=== PATIENT | female | born 1985 | race Caucasian/White ===

== ENCOUNTER 2020-11-24 19:06 | Emergency (ER) | payer OTHER, SELFPAY ==
--- NOTE | 2020-11-24 19:12 | ED.HEATRA ---
HPI - Head Injury General Chief complaint: Head Injury Stated complaint: thinks she got a concussion, neck pain Time Seen by Provider: 11/24/20 19:12 Source: patient and family Mode of arrival: Ambulatory Limitations: no limitations History of Present Illness HPI Narrative: 35-year-old female nonsmoker with noncontributory medical history presents with her significant other and a chief complaint of a head injury with neck pain suffered earlier today. She was doing pull-ups on a monkey bar when she thrust her head into the bar and suffered injury on the top of her head. She did not lose consciousness and has no laceration. She does not take blood thinners and denies use of alcohol or street drugs. She is acting appropriate and at her baseline, without confusion or repetitive questioning. She did have 4 episodes of vomiting between her injury and arrival at the emergency department. Additionally, she complains of some midline neck pain that seems to be worse with motion and improves with rest. She denies any neurologic symptoms such as numbness, tingling or weakness. She denies any history of the same. She is otherwise well and free of complaint. MD Complaint: head injury Onset (ago): hour(s) Arrival Conditions: C-spine immobilization present Mechanism of Injury: other Place: outdoors Loss of Consciousness: no Location of injury: parietal Severity: moderate Quality: aching Radiation: neck Other Injuries: neck Associated symptoms: nausea and vomiting Related Data Previous Rx's Medication Instructions Recorded ondansetron 4 mg PO TID-QID PRN #10 tab 11/24/20 Allergies Allergy/AdvReac Type Severity Reaction Status Date / Time No Known Drug Allergies Allergy Verified 11/24/20 19:18 Review of Systems Constitutional Constitutional: Denies chills, Denies fatigue, Denies fever(s), Denies frequent falls, Denies lethargy and Denies weakness Eyes Eyes: Denies change in vision, Denies eye discharge, Denies irritation and Denies loss of vision ENT Ears, Nose, Mouth, and Throat: Denies change in voice, Denies dizziness, Reports neck pain, Denies sore throat and Denies throat swelling Cardiovascular Cardiovascular: Denies chest pain, Denies irregular heart rhythm, Denies lightheadedness, Denies palpitations, Denies dyspnea, Denies dyspnea on exertion and Denies orthopnea Respiratory Respiratory: Denies cough, Denies dyspnea, Denies dyspnea on exertion and Denies wheezing Gastrointestinal Gastrointestinal: Denies abdominal pain, Denies change in bowel habits, Denies diarrhea, Reports nausea and Reports vomiting Musculoskeletal Musculoskeletal: Reports neck pain and Denies numbness Integumentary/Breasts Skin/Breast: Denies pruritus, Denies erythema, Denies rash and Denies wounds Neurologic Neurologic: Denies behavioral changes, Denies confusion, Denies dizziness, Denies frequent falls, Denies loss of vision, Denies numbness and Denies weakness Psychiatric Psychiatric: Denies anxiety, Denies behavioral changes, Denies confusion, Denies depression, Denies homicidal ideation and Denies suicidal ideation Endocrine Endocrine: Denies fatigue, Denies flushing and Denies palpitations Hematologic/Lymphatic Hematologic/Lymphatic: Denies easy bruising Allergic/Immunologic Allergic/Immunologic: Denies urticaria, Denies throat swelling and Denies wheezing Patient History Social History Smoking Status: Never smoker Smoking Status: Never smoker alcohol intake frequency: 0-2 drinks per day Substance Use Type: does not use Exam Narrative Exam Narrative: GENERAL: [35] year old patient appears stated age. Well-nourished, well-developed patient, in mild distress. GCS 15 HEAD: Atraumatic. Normocephalic. Mildly tender on top of had a few cm beyond the hairline, no laceration or large hematoma, no evidence of depressed skull fracture EYES: Pupils equal round and reactive. No hyphema Extraocular motions intact. No scleral icterus. No injection or drainage. ENT: Nose without bleeding, purulent drainage. No nasal septal hematoma Throat without erythema, tonsillar hypertrophy or exudate. Airway patent. NECK: Trachea midline. Bony tenderness in the midline, no step-offs or crepitance, no change with axial loading and no numbness, tingling or weakness CARDIOVASCULAR: Regular rate and rhythm without murmurs, gallops, or rubs. RESPIRATORY: Clear to auscultation. Breath sounds equal bilaterally. No wheezes, rales, or rhonchi. GASTROINTESTINAL: Abdomen soft, non-tender, nondistended. EXTREMITIES: No edema or joint tenderness. BACK: Nontender without deformity or crepitance. No flank tenderness. NEURO: AOx3. SKIN: No rash or erythema of visible areas Initial Vital Signs Initial Vital Signs: Vital Signs Temperature 98.1 F 11/24/20 19:18 Pulse Rate 84 11/24/20 19:18 Respiratory Rate 18 11/24/20 19:18 Blood Pressure 151/88 H 11/24/20 19:18 Pulse Oximetry 100 11/24/20 19:18 Course Orders Ordered: Discontinued Medications Cyclobenzaprine HCl (Cyclobenzaprine 10 Mg Prepack) 1 bottle MISC SEEINSTR ONE Stop: 11/24/20 20:56 Last Admin: 11/24/20 21:03 Dose: 1 bottle Documented by: LINDSAY Ondansetron HCl (Ondansetron 4 Mg Odt Prepack) 1 bottle MISC SEEINSTR ONE Stop: 11/24/20 20:42 Last Admin: 11/24/20 20:47 Dose: 1 bottle Documented by: KINGSLEY MDM - Head Injury Imaging Data CT scan - head: Radiologist's Impression: Renee Camp 35 F [address] [id number] Scan ReportSigned Patient: Renee Camp AMR#: [id number]: 1985Acct:[id number]/Sex: 35 / FDate of Service: 11/24/20Loc: EDAccession Number: [id number] Procedure: CT head/brain wo con Ordering Provider: Tony Erickson D.O. PROCEDURE: CT HEAD/BRAIN WO CON INDICATIONS: head injury, multiple episodes of vomiting TECHNIQUE: Noncontrast 4.5 mm thick angled axial sections acquired from the foramen magnum to the vertex, with coronal and sagittal reformats. For radiation dose reduction, the following was used: automated exposure control, adjustment of mA and/or kV according to patient size. COMPARISON: None. FINDINGS: Image quality: Excellent. CSF spaces: Basal cisterns are patent. No extra-axial fluid collections. Ventricles are normal in size and shape. Brain: No midline shift. No intracranial masses or hemorrhage. Ewing-white matter interface is normal. Skull and face: Calvarium and visualized facial bones are intact, without suspicious lesions. Sinuses: Visualized sinuses and mastoids are clear. IMPRESSION: No CT evidence of acute intracranial pathology. No gross acute skull fracture. Dictated by: Kalen Le M.D. on 11/24/2020 at 20:01 Approved by: Kalen Le M.D. on 11/24/2020 at 20:02 CT - cervical spine: Radiologist's Impression: Renee Camp 35 F [address] [id number] Scan ReportSigned Patient: Renee Camp AMR#: [id number]: 1985Acct:[id number]/Sex: 35 / FDate of Service: 11/24/20Loc: EDAccession Number: [id number] Procedure: CT cervical spine wo con Ordering Provider: Tony Erickson D.O. PROCEDURE: CT CERVICAL SPINE WO CON INDICATIONS: neck pain, with injury TECHNIQUE: Noncontrast 3 mm thick sections acquired from the skull base to the T4 level. Sagittal and coronal reformats were then constructed. For radiation dose reduction, the following was used: automated exposure control, adjustment of mA and/or kV according to patient size. COMPARISON: None. FINDINGS: Image quality: Excellent. Bones: No fractures or dislocations. Straightening of normal cervical lordosis is seen. Mild degenerative endplate changes are noted at C6-7 level. Visualized superior ribs are intact. Soft tissues: Prevertebral soft tissues are normal in thickness. No paravertebral hematomas. No apical pneumothoraces. IMPRESSION: Mild degenerative endplate changes at C6-7 level. No acute cervical spine fracture or dislocation. Dictated by: Kalen Le M.D. on 11/24/2020 at 20:02 Approved by: Kalen Le M.D. on 11/24/2020 at 20:05 [facility] Narrative Medical decision making narrative: Patient with multiple episodes of vomiting after head injury but normal head CT. She has a very reassuring exam and answers questions appropriately. She does have some midline neck tenderness but has full range of motion and no neurologic symptoms. She has been given return precautions and encouraged to follow-up. Questions answered to her apparent satisfaction Discharge Plan Departure Patient Disposition: Home Clinical Impression: Acute neck pain Concussion without loss of consciousness Qualifiers: Encounter type: initial encounter Qualified Code(s): S06.0X0A - Concussion without loss of consciousness, initial encounter Instructions: DI for Closed Head Injury Activity Restrictions/Additional Instructions: *You have been diagnosed with [head injury with mild concussion. Your CT scan of head and neck are very reassuring and there is no evidence of fracture, dislocation or brain injury.] *What to do: *Please continue to take your regular medications as directed. [ ] New medication prescriptions sent to your pharmacy: [ ] [ ] New medication written as a paper prescription [ ] New medications given to you to take home tonight. *Please follow up with your primary care provider in 2-3 days, call for an appointment. Let them know you were seen in the Emergency Department and that we ask that you be seen in follow up. We will electronically transmit a record of today's note if your PCP is in our system *If you do not have a primary care provider please contact the [facility] Resource line at [phone]. They will ask some questions about your medical history and help get you set up with a doctor in the community. You have a slight concussion and will likely have a mild headache and some nausea for a few days. Avoiding highly stimulating activities and even TV or computers may be helpful in minimizing your symptoms. Avoid activities that will put you at risk for another head injury for at least a week. You can take tylenol or motrin for headache or the prescription provided for nausea/vomiting. Return for worsening or persistent symptoms *Return to Emergency Department if you should have any new, worsening or concerning symptoms, such as [fever greater than 101 F, shaking chills, worsening pain, persistent vomiting or other bothersome symptoms] Prescriptions: New ondansetron 4 mg tablet,disintegrating 4 mg PO TID-QID PRN (Reason: nausea and vomiting) Qty: 10 RF: 0
[2020-11-24 19:18] VITALS: BP 151/88; PULSE 84; RESP 18; TEMP 36.7; O2SAT 100; BMI 31.6
--- NOTE | 2020-11-24 19:29 | DI.CT.S_ITS ---
PROCEDURE: CT CERVICAL SPINE WO CON INDICATIONS: neck pain, with injury TECHNIQUE: Noncontrast 3 mm thick sections acquired from the skull base to the T4 level. Sagittal and coronal reformats were then constructed. For radiation dose reduction, the following was used: automated exposure control, adjustment of mA and/or kV according to patient size. COMPARISON: None. FINDINGS: Image quality: Excellent. Bones: No fractures or dislocations. Straightening of normal cervical lordosis is seen. Mild degenerative endplate changes are noted at C6-7 level. Visualized superior ribs are intact. Soft tissues: Prevertebral soft tissues are normal in thickness. No paravertebral hematomas. No apical pneumothoraces. IMPRESSION: Mild degenerative endplate changes at C6-7 level. No acute cervical spine fracture or dislocation. Dictated by: Kalen Le M.D. on 11/24/2020 at 20:02 Approved by: Kalen Le M.D. on 11/24/2020 at 20:05
--- NOTE | 2020-11-24 19:29 | DI.CT.S_ITS ---
PROCEDURE: CT HEAD/BRAIN WO CON INDICATIONS: head injury, multiple episodes of vomiting TECHNIQUE: Noncontrast 4.5 mm thick angled axial sections acquired from the foramen magnum to the vertex, with coronal and sagittal reformats. For radiation dose reduction, the following was used: automated exposure control, adjustment of mA and/or kV according to patient size. COMPARISON: None. FINDINGS: Image quality: Excellent. CSF spaces: Basal cisterns are patent. No extra-axial fluid collections. Ventricles are normal in size and shape. Brain: No midline shift. No intracranial masses or hemorrhage. Ewing-white matter interface is normal. Skull and face: Calvarium and visualized facial bones are intact, without suspicious lesions. Sinuses: Visualized sinuses and mastoids are clear. IMPRESSION: No CT evidence of acute intracranial pathology. No gross acute skull fracture. Dictated by: Kalen Le M.D. on 11/24/2020 at 20:01 Approved by: Kalen Le M.D. on 11/24/2020 at 20:02
[2020-11-24] MEDS: ONDANSETRON 4 MG ODT PREPACK 1 BOTTLE MISC (20:47)
[2020-11-24] MEDS: CYCLOBENZAPRINE 10 MG PREPACK 1 BOTTLE MISC (21:03)
[2020-11-24 21:08] VITALS: BP 135/68; PULSE 73; RESP 16; O2SAT 99
== END 2020-11-24 21:10 | disposition home or self-care (01) ==
PROVIDERS: Emergency Provider Emergency Medicine
DX: S06.0X0A Concussion without loss of consciousness, initial encounter (principal); M54.2 Cervicalgia; W21.9XXA Striking against or struck by unspecified sports equipment, initial encounter
CPT/HCPCS: 70450; 72125; 99284

== ENCOUNTER 2021-01-22 15:24 | Emergency (ER) | payer OTHER, SELFPAY ==
[2021-01-22] VITALS (14 sets, daily range): BP systolic 117–151; BP diastolic 58–84; PULSE 56–86; RESP 11–33; TEMP 36.6; O2SAT 98–100; BMI 31.6
--- NOTE | 2021-01-22 15:49 | DI.RAD.S_ITS ---
PROCEDURE: XR CHEST 1V INDICATIONS: Chest pain TECHNIQUE: One view of the chest was acquired. COMPARISON: None. FINDINGS: Surgical changes and devices: None. Lungs and pleura: Lungs are clear. No pleural effusions or pneumothorax. Mediastinum: Mediastinal contours appear normal. Heart size is normal. Bones and chest wall: No suspicious bony lesions. Overlying soft tissues appear unremarkable. IMPRESSION: No acute cardiopulmonary process demonstrated radiographically. Dictated by: Harjeet Polk M.D. on 01/22/2021 at 16:37 Approved by: Harjeet Polk M.D. on 01/22/2021 at 16:38
[2021-01-22 16:25] LABS: Add Manual Diff / Slide Review NO; Basophils Absolute Auto 0 /uL (0-100); Basophils Percent Auto 0.7 % (0-2); Eosinophils Absolute Auto 100 /uL (0-450); Eosinophils Percent Auto 1.5 % (2-4); Hematocrit 35.5 % (36-46); Lymphocytes Absolute Auto 2300 /uL (1100-4500); Lymphocytes Percent Auto 31.3 % (25-40); Mean Corpuscular HGB Conc 33.9 % (30-36); Mean Corpuscular Hemoglobin 27.6 PG (26-34); Mean Corpuscular Volume 81.4 fL (80-100); Monocytes Absolute Auto 500 /uL (0-900); Monocytes Percent Auto 6.5 % (3-14); Neutrophils Absolute Auto 4500 /uL (1500-7000); Platelet Count 269 X10^3/uL (150-400); Red Blood Cell Count 4.35 X10^6/uL (4.0-5.2); Red Cell Distribution Width 16.4 % (11.6-14.8); White Blood Cell Count 7.4 X10^3/uL (4.5-11.0)
[2021-01-22 16:35] LABS: Alanine Aminotransferase 13 IU/L (<35); Albumin 4.1 g/dL (3.5-5.0); Albumin Globulin Ratio 1.4 (1.0-2.8); Alkaline Phosphatase 66 U/L (38-126); Aspartate Aminotransferase 12 IU/L (14-36); Bilirubin Total 0.7 mg/dL (0.2-1.3); Blood Urea Nitrogen 11 mg/dL (7-17); Calcium 9.3 mg/dL (8.4-10.2); Carbon Dioxide 28 mmol/L (22-32); Chloride 105 mmol/L (98-107); Creatine Kinase 58 U/L (30-135); Estimated Glomerular Filt Rate > 60.0 mL/min (>60); Glucose 85 mg/dL (70-100); HEMOLYSIS < 15 (0-50); Lipase 69 U/L (23-300); Sodium 139 mmol/L (137-145); Total Protein 7.1 g/dL (6.3-8.2)
[2021-01-22 16:47] LABS: Troponin I < 0.012 ng/mL (0.01-0.034)
--- NOTE | 2021-01-22 18:37 | ED.DIZZY ---
HPI - Dizziness General Chief Complaint: Dizziness Stated Complaint: visual changes, dizziness Time Seen by Provider: 01/22/21 18:01 Source: patient Mode of arrival: Family Vehicle History of Present Illness HPI Narrative: 35-year-old female nonsmoker with noncontributory medical history presents with a chief complaint of an episode of sharp pain in her calf that was very brief and closely followed by rapid irregular heart rate. She states that there rapid heart rate lasted few moments and soon thereafter she developed a headache as well as some blurring her vision. The headache persists but the blurring of vision is largely improved. She denies recent travel, injuries, fever or chills. She denies any recent nausea, vomiting, diarrhea. She denies any new medications or [id number] meds. Related Data Previous Rx's Medication Instructions Recorded ondansetron 4 mg disintegrating 4 mg PO TID-QID PRN #10 tab 11/24/20 tablet Allergies Allergy/AdvReac Type Severity Reaction Status Date / Time No Known Drug Allergies Allergy Verified 01/22/21 15:49 Review of Systems Constitutional Constitutional: Denies chills, Denies fatigue, Denies fever(s), Denies lethargy and Denies weakness Eyes Eyes: Denies eye discharge and Denies loss of vision ENT Ears, Nose, Mouth, and Throat: Denies change in voice and Denies neck pain Cardiovascular Cardiovascular: Denies chest pain, Reports irregular heart rhythm, Reports lightheadedness, Reports palpitations and Denies orthopnea Respiratory Respiratory: Denies cough Gastrointestinal Gastrointestinal: Denies abdominal pain, Denies nausea and Denies vomiting Genitourinary Comments: Denies dysuria, frequency or urgency Musculoskeletal Musculoskeletal: Denies neck pain and Denies numbness Integumentary/Breasts Skin/Breast: Denies rash and Denies wounds Neurologic Neurologic: Denies behavioral changes, Denies confusion, Denies loss of vision, Denies numbness and Denies weakness Psychiatric Psychiatric: Denies anxiety, Denies behavioral changes, Denies confusion and Denies depression Endocrine Endocrine: Denies fatigue and Reports palpitations Hematologic/Lymphatic Hematologic/Lymphatic: Denies easy bruising Allergic/Immunologic Allergic/Immunologic: Denies urticaria Patient History Social History Smoking Status: Never smoker Smoking Status: Never smoker alcohol intake frequency: 0-2 drinks per day Substance Use Type: does not use Exam Narrative Exam Narrative: GENERAL: [35] year old patient appears stated age. Well-developed patient, in mild distress. HEAD: Atraumatic. Normocephalic. EYES: Pupils equal round and reactive. Extraocular motions intact. No scleral icterus. No injection or drainage. ENT: Nose without bleeding, purulent drainage. Throat without erythema, tonsillar hypertrophy or exudate. Airway patent. NECK: Trachea midline. Non tender CARDIOVASCULAR: Regular rate and rhythm without murmurs, gallops, or rubs. RESPIRATORY: Clear to auscultation. Breath sounds equal bilaterally. No wheezes, rales, or rhonchi. GASTROINTESTINAL: Abdomen soft, non-tender, nondistended. EXTREMITIES: No edema or joint tenderness. No calf pain, swelling or redness BACK: Nontender without deformity or crepitance. No flank tenderness. NEURO: AOx3. SKIN: No rash or erythema of visible areas NIH Stroke Scale 1a. LOC: Patient is alert and keenly responsive (0) 1b. LOC Questions: Patient answers both LOC questions accurately (0) 1c. LOC Commands: Patient performs both tasks correctly (0) 2. Best Gaze: Normal (0) 3. Visual: No visual loss (0) 4. Facial palsy: Normal symmetrical movements (0) 5. Motor arm: No drift (0) 6. Motor leg: No drift (0) 7. Limb ataxia: Absent (0) 8. Sensory: Normal (0) 9. Best language: No aphasia; normal (0) 10. Dysarthria: Normal (0) 11. Extinction and inattention: No abnormality (0) NIHSS: 0 Initial Vital Signs Initial Vital Signs: Vital Signs Temperature 97.9 F 01/22/21 15:45 Pulse Rate 75 01/22/21 15:45 Respiratory Rate 19 01/22/21 15:45 Blood Pressure 143/84 H 01/22/21 15:45 Pulse Oximetry 99 01/22/21 15:45 Scores PERC Score Age greater than or equal to 50 years: No Heart rate greater than or equal to 100 bpm: No Unilateral leg swelling: No Recent trauma or surgery: No Hemoptysis: No Prior PE or DVT: No Hormone Use: No Wells' Criteria for PE Clinical signs and symptoms of DVT: No PE is #1 Dx or equally likely: No Heart rate > 100: No History of PE or DVT: No Hemoptysis: No Malignancy w/Treatment within 6 months or palliative: No Course Orders Ordered: Discontinued Medications Sodium Chloride (Normal Saline 0.9%) 1,000 mls @ 1,000 mls/hr IV BOLUS ONE Stop: 01/22/21 19:44 Last Infusion: 01/22/21 20:30 Dose: 0 mls/hr Documented by: Admin: 01/22/21 19:13 Dose: 1,000 mls/hr Documented by: SARAH Ketorolac Tromethamine (Ketorolac 30 Mg/Ml Vial) 15 mg IV NOW ONE Stop: 01/22/21 18:46 Last Admin: 01/22/21 19:12 Dose: 15 mg Documented by: SARAH Reevaluation(s) Reevaluation #1: Patient feeling much better after above-stated therapies Vital Signs Vital signs: Vital Signs - 8 hr 01/22/21 19:30 01/22/21 19:31 01/22/21 20:00 Pulse Rate 65 63 59 L Pulse Rate [Orthostatic Lying] Pulse Rate [Orthostatic Sitting] Pulse Rate [Orthostatic Standing] Respiratory Rate 25 H 18 16 Blood Pressure 129/60 Blood Pressure [Orthostatic Lying] Blood Pressure [Orthostatic Sitting] Blood Pressure [Orthostatic Standing] Pulse Oximetry 100 100 100 01/22/21 20:04 01/22/21 20:30 01/22/21 21:00 Pulse Rate 66 62 56 L Pulse Rate [Orthostatic Lying] Pulse Rate [Orthostatic Sitting] Pulse Rate [Orthostatic Standing] Respiratory Rate 15 11 L 16 Blood Pressure 123/67 140/66 Blood Pressure [Orthostatic Lying] Blood Pressure [Orthostatic Sitting] Blood Pressure [Orthostatic Standing] Pulse Oximetry 100 100 100 01/22/21 21:01 01/22/21 21:27 01/22/21 21:29 Pulse Rate 64 68 70 Pulse Rate [Orthostatic Lying] Pulse Rate [Orthostatic Sitting] Pulse Rate [Orthostatic Standing] Respiratory Rate 18 24 14 Blood Pressure 117/58 L 137/63 133/73 Blood Pressure [Orthostatic Lying] Blood Pressure [Orthostatic Sitting] Blood Pressure [Orthostatic Standing] Pulse Oximetry 100 99 100 01/22/21 21:30 01/22/21 21:31 01/22/21 22:00 Pulse Rate 86 71 Pulse Rate [Orthostatic Lying] 73 Pulse Rate [Orthostatic Sitting] 70 Pulse Rate [Orthostatic Standing] 82 Respiratory Rate 33 H 21 Blood Pressure 151/79 H 127/62 Blood Pressure [Orthostatic Lying] 137/63 Blood Pressure [Orthostatic Sitting] 133/73 Blood Pressure [Orthostatic Standing] 151/79 H Pulse Oximetry 100 98 MDM - Dizziness Lab Data Result diagrams: 01/22/21 16:10 01/22/21 16:10 Labs: Lab Results 01/22/21 01/22/21 Range/Units 16:10 16:10 WBC 7.4 (4.5-11.0) X10^3/uL RBC 4.35 (4.0-5.2) X10^6/uL Hgb 12.0 (12.0-16.0) g/dL Hct 35.5 L (36-46) % MCV 81.4 (80-100) fL MCH 27.6 (26-34) PG MCHC 33.9 (30-36) % RDW 16.4 H (11.6-14.8) % Plt Count 269 (150-400) X10^3/uL Neut % (Auto) 60.0 (50-75) % Lymph % (Auto) 31.3 (25-40) % [place] % (Auto) 6.5 (3-14) % Eos % (Auto) 1.5 L (2-4) % Baso % (Auto) 0.7 (0-2) % Neut # (Auto) 4500 (8411-1895) /uL Lymph # (Auto) 2300 (3452-7021) /uL [place] # (Auto) 500 (0-900) /uL Eos # (Auto) 100 (0-450) /uL Baso # (Auto) 0 (0-100) /uL Sodium 139 (137-145) mmol/L Potassium 4.0 (3.4-5.1) mmol/L Chloride 105 (98-107) mmol/L Carbon Dioxide 28 (22-32) mmol/L BUN 11 (7-17) mg/dL Creatinine 0.61 (0.52-1.04) mg/dL Estimated GFR > 60.0 (>60) mL/min BUN/Creatinine Ratio 18.0 (6-22) Glucose 85 (70-100) mg/dL Calcium 9.3 (8.4-10.2) mg/dL Total Bilirubin 0.7 (0.2-1.3) mg/dL AST 12 L (14-36) IU/L ALT 13 (<35) IU/L Alkaline Phosphatase 66 (38-126) U/L Total Creatine Kinase 58 (30-135) U/L CK-MB (CK-2) TNP CK-MB (CK-2) Rel Index TNP Troponin I < 0.012 (0.01-0.034) ng/mL Total Protein 7.1 (6.3-8.2) g/dL Albumin 4.1 (3.5-5.0) g/dL Globulin 3.0 (1.7-4.1) g/dL Albumin/Globulin Ratio 1.4 (1.0-2.8) Lipase 69 (23-300) U/L MDM Narrative Medical decision making narrative: Patient reports some dizziness and lightheadedness as well as mild headache, dizziness and lightheadedness is worse upon standing in all but resolved upon sitting. Her visual complaints seem to be very closely linked in exacerbated by a rapid heart rate that resolved long before her arrival. EKG show no significant findings and lab work is unremarkable. She responds well to fluids. She has been given return precautions and is had questions answered to her apparent satisfaction. It seems likely that there is an element of dehydration here but other diagnoses such as pulmonary embolism are considered, but thought unlikely given extremely low pretest probability Discharge Plan Departure Patient Disposition: Home Clinical Impression: Headache, Acute dehydration, Palpitations Instructions: DI for Headache, DI for Dizziness-Nonvertigo Activity Restrictions/Additional Instructions: *You have been diagnosed with [palpitations, dehydration and headache] *What to do: *Please continue to take your regular medications as directed. [ ] New medication prescriptions sent to your pharmacy: [ ] [ ] New medication written as a paper prescription [ x] No new medications given *Please follow up with your primary care provider in 2-3 days, call for an appointment. Let them know you were seen in the Emergency Department and that we ask that you be seen in follow up. We will electronically transmit a record of today's note if your PCP is in our system *If you do not have a primary care provider please contact the [facility] Resource line at [phone]. They will ask some questions about your medical history and help get you set up with a doctor in the community. *Return to Emergency Department if you should have any new, worsening or concerning symptoms, such as [fever greater than 101 F, shaking chills, worsening pain, persistent vomiting or other bothersome symptoms] Prescriptions: No Action ondansetron 4 mg tablet,disintegrating 4 mg PO TID-QID PRN (Reason: nausea and vomiting) Qty: 10 RF: 0
[2021-01-22] MEDS: KETOROLAC 30 MG/ML VIAL 15 MG IV (19:12)
[2021-01-22] MEDS: SODIUM CHLORIDE 0.9% 1,000 ML 1000 ML IV (19:13)
== END 2021-01-22 22:05 | disposition home or self-care (01) ==
PROVIDERS: Emergency Medicine; Emergency Provider Emergency Medicine
DX: R00.2 Palpitations (principal); R51.9 Headache, unspecified; E86.0 Dehydration; H53.8 Other visual disturbances
CPT/HCPCS: 36415; 71045; 80053; 82550; 83690; 84484; 85025; 93005; 96361; 96374; 99284; J1885

== ENCOUNTER 2022-04-04 11:45 | Day surgery (SDC) | payer OTHER, SELFPAY ==
--- NOTE | 2022-04-04 | PATH_ITS ---
[facility] Accession Number: [id number] . 01 Material submitted: . PART A: duodenum - DUODENUM BIOPSY PART B: gastrointestinal site - ANTRUM BIOPSY . 01 Diagnosis: A. Duodenum, Biopsy: Duodenal mucosa with no diagnostic abnormality. Negative for active inflammation, features of sprue, dysplasia, or malignancy. . B. Antrum, Biopsy: Antral mucosa with no diagnostic abnormality. No evidence of Helicobacter organisms on H/E stain. Negative for intestinal metaplasia. Negative for dysplasia or malignancy. [facility] 04/07/2022 0944 Local . 01 Electronically signed: . Lorna Cota MD, Pathologist NPI- [id number] . 01 Gross description: . Part A: DUODENUM BIOPSY: Received in formalin are 4 fragment(s) of tracy, soft tissue measuring 0.4 x 0.3 x 0.3 cm to 0.2 x 0.2 x 0.1 cm submitted entirely in 1 cassette(s) Part B: ANTRUM BIOPSY: Received in formalin are 2 fragment(s) of tracy, soft tissue measuring 0.3 x 0.2 x 0.1 cm to 0.3 x 0.2 x 0.2 cm submitted entirely in 1 cassette(s) /QBJ 04/06/2022 1025 Local . 01 Pathologist provided ICD-10: K59.00, R11.2 . 01 CPT . 348243, [id number] Specimen Comment: A courtesy copy of this report has been sent to [phone] Performed at: 01 [facility] [address] [place] [address] [address], [place], [place] [id number] MD Saud Ryan MD Phone: [phone]
[2022-04-04 12:15] VITALS: BP 123/72; PULSE 66; RESP 16; TEMP 36.7; O2SAT 100; BMI 28.1
[2022-04-04] MEDS: SODIUM CHLORIDE 0.9% 1,000 ML 84 ML IV (12:27)
[2022-04-04 12:58] LABS: COVID19 -Nasal RAPID Negative (Negative)
--- NOTE | 2022-04-04 13:07 | PM.HP.1 ---
History of Present Illness History of Present Illness Date Patient Seen: 04/04/22 Time Patient Seen: 13:07 Chief complaint: EGD/Colonoscopy Narrative: I reviewed my office note from December. No significant changes. No significant improvements. Couple of bowel movements per week. Frequent nausea vomiting. Frequent upper abdominal pain. Low-grade microcytosis Patient History Family & Social History Social History: household members spouse Tobacco & Substance use: Smoking Status Never smoker alcohol intake never alcohol intake frequency 0-2 drinks per day Substance Use Type does not use Meds Home Medications and Allergies Home Medications Medication Instructions Recorded Confirmed Type ondansetron 4 mg disintegrating 4 mg PO TID-QID PRN nausea and 11/24/20 04/04/22 Rx tablet vomiting #10 tabs Topamax See Rx Instructions .Route .COMPLEX 04/04/22 04/04/22 History Allergies Allergy/AdvReac Type Severity Reaction Status Date / Time morphine Allergy Rash Verified 04/04/22 12:09 Review of Systems Review of Systems ROS: Yes All systems reviewed with the patient and are negative except as otherwise documented Exam Vital Signs (past 8 hours): - 04/04/22 12:15 Temperature 98.0 F Pulse Rate 66 Respiratory Rate 16 Blood Pressure 123/72 Pulse Oximetry 100 Oxygen Delivery Method Room Air Oxygen Delivery Method Room Air Const General: cooperative HENMT Head: normal to inspection Eyes General: appearance normal, both eyes and all related structures Neck Neck: normal visual inspection Chest Chest: normal inspection of the chest Resp Effort & Inspection: normal respiratory effort Cardio Rate: regular rate GI Inspection: normal to inspection Skin General: no rashes or lesions noted Neuro General: patient alert and patient awake Extrem General: normal to inspection and no pedal edema Psych Appearance: grossly normal Objective Labs Labs: Laboratory Results - last 24 hr 04/04/22 11:53 SARS-CoV-2 (PCR) Negative Assessment & Plan Assessment & Plan narrative: 37-year-old female with intermittent right upper quadrant pain nausea vomiting constipation and a concern for iron deficiency. Both EGD and colonoscopy are pursued today. Time Spent With Patient Critical Care time: I spent a total of [] minutes of critical care time on this patient's care today; this time is exclusive of procedural time.
--- NOTE | 2022-04-04 13:09 | PM.PREOP ---
Pre-operative Note COVID-19 COVID-19 status: Negative Result date/Date tested (Pos, Neg/Pending): 04/04/22 Criteria for continued procedure: Possibility delay results in more complex future surgery or treatment Interval Note History & Physical reviewed/Exam performed by Physician: Yes Changes to H&P: No ASA Class (for procedural sedation): II
--- NOTE | 2022-04-04 14:21 | P.OP.EGD&C_ITS ---
Operative Date/Time/Diagnoses Date of procedure: 04/04/22 Time of procedure: 14:21 Pre-op diagnosis: Nausea vomiting abdominal pain constipation microcytosis Post-op diagnosis: same Procedure & Clinicians Study performed: EGD with biopsies and colonoscopy Same procedure as scheduled: Yes Indications: Nausea vomiting abdominal pain constipation microcytosis Surgeon: Rocael Louis Procedure Notes SCOAP/Timeout: Done Procedure in detail: After the risks and benefits were explained, written and verbal informed consent was obtained. The patient was brought into the procedure room and placed into the left lateral decubitus position. Digital rectal exam was accomplished prior to initiation of sedation. Please see nurse cell phone repair technician notes for sedation details. The scope was introduced into the mouth through the bite block and advanced under direct visualization to the 2nd portion of the duodenum. The scope was slowly withdrawn carefully examining the mucosa for any defects or lesions. Retroflexed views were accomplished in the stomach. The stomach was decompressed, the scope was then removed from the patient who tolerated the procedure well. The patient was then turned around scope introduced into the rectum and advanced to the cecum as identified by the appendiceal orifice and ileocecal valve. The terminal ileum was interrogated. The scope was then slowly withdrawn to carefully examine the mucosa for any defects or lesions. Multiple direct views were made through the dentate line for exclusion of pathology. The the colon was decompressed scope removed from the patient who tolerated the procedure well. Pediatric colonoscope Bowel prep fair but with copious irrigation and suction was rendered adequate. Scope withdrawal time: 9 minutes Sedation minutes: 34 Complications: none Impression: 1. Duodenum: This was visually normal from the bulb through the 2nd portion. Considering the microcytosis, random D2 biopsies were taken for exclusion of sprue. 2. Stomach: No gastric outlet obstruction no ulcers no mass lesions. Mild gastropathy was appreciated and antral biopsies were thus acquired for exclusion of H pylori or other pathology. Retroflexed views of the LES were unremarkable. 3. Esophagus: The squamocolumnar junction correlated with the top of the gastric folds. GEJ was at 40 cm from the incisors. No acute erosive changes no strictures no mass lesions. The esophagus appeared normal. 4. Terminal ileum: This was visually normal. 5. Colon: The patient had an extremely tortuous left colon. Navigation was somewhat challenging as a consequence. No significant polyps mass lesions strictures or inflammatory features identified throughout. 6. Rectal exam: Patient had a normal anal wink. Visually the external perineum was entirely normal. The patient had a normal resting anal sphincter tone. There was normal increased tension to the external anal sphincter mechanism with the request to contract. With simulated defecation, there was normal relaxation of the anal sphincter mechanism and the finger was easily expelled. Endoscopic diagnosis 1. Mild gastropathy 2. Otherwise visually unremarkable EGD 3. Normal anorectum 4. Tortuous left colon 5. Otherwise visually unremarkable colonoscopy and terminal ileoscopy. Post-procedure Plan for aftercare: 1. Await histopathology 2. Daily fiber regimen. 3. Daily to every other day MiraLax. 4. Follow up on response in GI clinic. Disposition: PACU
[2022-04-04 14:23] VITALS: BP 106/57; PULSE 69; RESP 12; TEMP 36.2; O2SAT 100
[2022-04-04 14:29] VITALS: BP 120/65; PULSE 72; RESP 15; O2SAT 100
[2022-04-04 14:34] VITALS: BP 109/63; PULSE 70; RESP 17; O2SAT 100
[2022-04-04 15:00] VITALS: BP 107/66; PULSE 71; RESP 16; O2SAT 100
--- NOTE | 2022-04-04 15:09 | SUR.PHASEII ---
pt A&Ox4, denies any distress and ready to discharge home. Discharge instructions reviewed and time allowed for questions. IV DC'd intact, pt left unit with all personal belongings via w/c with volunteer assist to ER entrance where family will transport pt home.
== END 2022-04-04 15:00 | disposition home or self-care (01) ==
PROVIDERS: PCP Nurse Practitioner; Referring Provider Internal Medicine Gastroenterology; Visit Provider Internal Medicine Gastroenterology
PROC: 0DJ08ZZ Inspection of Upper Intestinal Tract, Via Natural or Artificial Opening Endoscopic (ICD-10-PCS; CPT 43235; principal; 2022-04-04 12:30)
PROC: 0DJD8ZZ Inspection of Lower Intestinal Tract, Via Natural or Artificial Opening Endoscopic (ICD-10-PCS; CPT 45378; 2022-04-04 12:30)
DX: R10.9 Unspecified abdominal pain (principal); K59.00 Constipation, unspecified; R11.2 Nausea with vomiting, unspecified; R71.8 Other abnormality of red blood cells; Z20.822 Contact with and (suspected) exposure to COVID-19; K31.9 Disease of stomach and duodenum, unspecified
CPT/HCPCS: 43239; 45378; 87635; C9803; J2704; J3010

== ENCOUNTER 2022-08-25 09:51 | Emergency (ER) | payer OTHER, SELFPAY ==
[2022-08-25 10:00] VITALS: BP 141/65; PULSE 70; RESP 15; TEMP 36.2; O2SAT 99; BMI 27.1
[2022-08-25 10:53] VITALS: PULSE 57; O2SAT 99
[2022-08-25 10:53] LABS: Add Manual Diff / Slide Review NO; Basophils Absolute Auto 0 /uL (0-100); Basophils Percent Auto 0.6 % (0-2); Eosinophils Absolute Auto 100 /uL (0-450); Eosinophils Percent Auto 1.5 % (2-4); Hematocrit 33.5 % (36-46); Hemoglobin 11.4 g/dL (12.0-16.0); Lymphocytes Absolute Auto 1900 /uL (1100-4500); Lymphocytes Percent Auto 32.8 % (25-40); Mean Corpuscular HGB Conc 33.8 % (30-36); Mean Corpuscular Hemoglobin 26.2 PG (26-34); Mean Corpuscular Volume 77.5 fL (80-100); Monocytes Absolute Auto 400 /uL (0-900); Monocytes Percent Auto 6.9 % (3-14); Neutrophils Absolute Auto 3400 /uL (1500-7000); Neutrophils Percent Auto 58.2 % (50-75); Platelet Count 303 X10^3/uL (150-400); Red Blood Cell Count 4.33 X10^6/uL (4.0-5.2); White Blood Cell Count 5.8 X10^3/uL (4.5-11.0)
[2022-08-25 11:00] VITALS: BP 105/58; PULSE 59; O2SAT 98
[2022-08-25 11:14] LABS: Alanine Aminotransferase 15 IU/L (<35); Albumin 4.2 g/dL (3.5-5.0); Albumin Globulin Ratio 1.4 (1.0-2.8); Alkaline Phosphatase 60 U/L (38-126); Aspartate Aminotransferase 13 IU/L (14-36); BUN Creatinine Ratio 13.6 (6-22); Bilirubin Total 0.8 mg/dL (0.2-1.3); Blood Urea Nitrogen 8 mg/dL (7-17); Calcium 8.7 mg/dL (8.4-10.2); Carbon Dioxide 27 mmol/L (22-32); Chloride 104 mmol/L (98-107); Estimated Glomerular Filt Rate > 60 mL/min (>60); Globulin 2.9 g/dL (1.7-4.1); Glucose 90 mg/dL (70-100); HEMOLYSIS < 15 (0-50); Lipase 116 U/L (23-300); Potassium 3.9 mmol/L (3.4-5.1); Sodium 140 mmol/L (137-145); Total Protein 7.1 g/dL (6.3-8.2)
[2022-08-25 11:30] VITALS: BP 100/58; PULSE 64; O2SAT 99
[2022-08-25 12:00] VITALS: PULSE 65; O2SAT 99
--- NOTE | 2022-08-25 12:18 | ED_ITS ---
HPI - Abdominal Pain <YISEL Romero - Last Filed: 08/25/22 16:58> General Chief Complaint: Abdominal Pain Stated Complaint: abd pain rt side, nausea, vomiting, migraine Time Seen by Provider: 08/25/22 12:05 Source: patient Mode of arrival: Ambulatory History of Present Illness HPI narrative: This is a 37-year-old female with a history of cholecystectomy in 2019 which was uncomplicated, presents for sharp right upper quadrant pain that started at 07:00 today. States that she had fever and chills with sweating the bed the last 2 nights. She has history of 2 C sections, state that her kids have runny noses and coughs but she does not have any symptoms. She denies shortness of breath, chest pain, difficulty breathing, endorses that she had diarrhea this morning as well. Denies any other symptoms including GERD, reflux, heartburn, states that she does have a headache. Patient has medical history including migraines, chronic back pain, IBS, with heavy and painful menstrual periods. States that her menses just ended. Denies any vaginal discharge, denies flank pain, endorses some lumbar radiculopathy but denies any recent trauma. Related Data Home Medications Medication Instructions Recorded Confirmed Topamax See Rx Instructions .Route .COMPLEX 04/04/22 04/04/22 Previous Rx's Medication Instructions Recorded ondansetron 4 mg disintegrating 4 mg PO TID-QID PRN nausea and 11/24/20 tablet vomiting #10 tabs ondansetron 4 mg disintegrating 4 mg PO Q8H PRN nausea and 08/25/22 tablet vomiting #14 tabs Allergies Allergy/AdvReac Type Severity Reaction Status Date / Time sumatriptan [From Imitrex] Allergy Severe Swelling Verified 08/25/22 10:03 of Lip/Tongue/Throat morphine Allergy Rash Verified 08/25/22 10:00 Patient History <YISEL Romero - Last Filed: 08/25/22 16:58> Medical History Abnormal Pap smear of cervix (~2014) Anemia Ankle pain Anxiety (~2016) Chicken pox (~1989) Chlamydia (~2013) Chronic back pain Headache Heavy menstrual period (~1997) Human papilloma virus (~2014) Irritable bowel syndrome Migraines Painful menstrual periods (~2001) Shoulder pain Surgical History Anesthesia History of section History of cholecystectomy (~2020) S/P tubal ligation Family History Father Diabetes mellitus History of heart disease Hypertension Hyperlipidemia Mental health problem Brother History of bipolar disorder ADHD Cancer Mental health problem Brain tumor Seizures Grandfather Diabetes mellitus Hypertension Hyperlipidemia Stroke Grandmother History of heart disease Family/Other Eczema Social History household members: spouse Smoking Status: Never smoker alcohol intake: never Smoking Status: Never smoker alcohol intake frequency: holidays/special occasions only Substance Use Type: does not use Exam <YISEL Romero - Last Filed: 08/25/22 16:58> Narrative Exam Narrative: Reviewed vitals signs and nursing notes. General: cooperative, comfortable, in no acute distress, well groomed HEENT: symmetrical facial expressions, moist mucous membranes Cardiovascular: regular rate and rhythm, no peripheral edema, warm extremities Respiratory: normal effort, able to speak in complete sentences, without wheezing, stridor, or abnormal breath sounds. No retractions or tachypnea. GI: abdomen soft, tender to palpation in the right upper quadrant with deep inspiration, positive Cheney's, mild tenderness over the lower left quadrant over the ovary, nondistended, without masses, rebound tenderness or exquisite tenderness with exam. MSK: moves all extremities, neurovascularly intact, no weakness, normal tone Skin: brisk capillary refill, without pallor or erythema Neuro: normal speech and cognition, A&O x3, ambulatory, clear speech Psych: mental status is grossly normal, congruent mood, normal affect, pleasant and cooperative Initial Vital Signs Initial Vital Signs: Vital Signs Temperature 97.2 F L 08/25/22 10:00 Pulse Rate 70 08/25/22 10:00 Respiratory Rate 15 08/25/22 10:00 Blood Pressure 141/65 H 08/25/22 10:00 Pulse Oximetry 99 08/25/22 10:00 Oxygen Delivery Method 08/25/22 10:00 <Polly Cee DO - Last Filed: 09/02/22 07:36> Initial Vital Signs Initial Vital Signs: Vital Signs Temperature 97.2 F L 08/25/22 10:00 Pulse Rate 70 08/25/22 10:00 Respiratory Rate 15 08/25/22 10:00 Blood Pressure 141/65 H 08/25/22 10:00 Pulse Oximetry 99 08/25/22 10:00 Oxygen Delivery Method 08/25/22 10:00 Course <YISEL Romero - Last Filed: 08/25/22 16:58> Orders Ordered: Discontinued Medications Dexamethasone (Dexamethasone 10 Mg/Ml Vial) 10 mg IV NOW ONE Stop: 08/25/22 12:19 Last Admin: 08/25/22 12:50 Dose: 10 mg Documented By: MINERVA Diphenhydramine HCl (Diphenhydramine 50 Mg/Ml Vial) 25 mg IV NOW ONE Stop: 08/25/22 12:19 Last Admin: 08/25/22 12:51 Dose: 25 mg Documented By: MINERVA Hydromorphone HCl (Hydromorphone 0.5 Mg Inj) 0.5 mg IV NOW ONE Stop: 08/25/22 12:16 Last Admin: 08/25/22 13:59 Dose: 0.5 mg Documented By: LIBIA Sodium Chloride (Normal Saline 0.9%) 1,000 mls @ 1,000 mls/hr IV BOLUS ONE Stop: 08/25/22 13:14 Last Infusion: 08/25/22 13:43 Dose: 0 mls/hr Documented By: Admin: 08/25/22 12:50 Dose: 1,000 mls/hr Documented By: MINERVA Ketorolac Tromethamine (Ketorolac 30 Mg/Ml Vial) 15 mg IV NOW ONE Stop: 08/25/22 12:16 Last Admin: 08/25/22 12:50 Dose: 15 mg Documented By: MINERVA Ondansetron HCl (Ondansetron 4 Mg/2 Ml Inj) 4 mg IV NOW PRN PRN Reason: Nausea And Vomiting Last Admin: 08/25/22 12:50 Dose: 4 mg Documented By: MINERVA Vital Signs Vital signs: Vital Signs - 8 hr 08/25/22 10:00 08/25/22 10:53 08/25/22 11:00 Temperature 97.2 F L Pulse Rate 70 57 L Respiratory Rate 15 Blood Pressure 141/65 H 105/58 L Pulse Oximetry 99 99 Oxygen Delivery Method Room Air 08/25/22 11:00 08/25/22 11:30 08/25/22 11:30 Temperature Pulse Rate 59 L 64 Respiratory Rate Blood Pressure 100/58 L Pulse Oximetry 98 99 Oxygen Delivery Method 08/25/22 12:00 08/25/22 14:28 Temperature Pulse Rate 65 65 Respiratory Rate 19 Blood Pressure 121/63 Pulse Oximetry 99 100 Oxygen Delivery Method Room Air <Polly Cee DO - Last Filed: 09/02/22 07:36> Orders Ordered: Discontinued Medications Dexamethasone (Dexamethasone 10 Mg/Ml Vial) 10 mg IV NOW ONE Stop: 08/25/22 12:19 Last Admin: 08/25/22 12:50 Dose: 10 mg Documented By: MINERVA Diphenhydramine HCl (Diphenhydramine 50 Mg/Ml Vial) 25 mg IV NOW ONE Stop: 08/25/22 12:19 Last Admin: 08/25/22 12:51 Dose: 25 mg Documented By: MINERVA Hydromorphone HCl (Hydromorphone 0.5 Mg Inj) 0.5 mg IV NOW ONE Stop: 08/25/22 12:16 Last Admin: 08/25/22 13:59 Dose: 0.5 mg Documented By: LIBIA Sodium Chloride (Normal Saline 0.9%) 1,000 mls @ 1,000 mls/hr IV BOLUS ONE Stop: 08/25/22 13:14 Last Infusion: 08/25/22 13:43 Dose: 0 mls/hr Documented By: Admin: 08/25/22 12:50 Dose: 1,000 mls/hr Documented By: MINERVA Ketorolac Tromethamine (Ketorolac 30 Mg/Ml Vial) 15 mg IV NOW ONE Stop: 08/25/22 12:16 Last Admin: 08/25/22 12:50 Dose: 15 mg Documented By: MINERVA Ondansetron HCl (Ondansetron 4 Mg/2 Ml Inj) 4 mg IV NOW PRN PRN Reason: Nausea And Vomiting Last Admin: 08/25/22 12:50 Dose: 4 mg Documented By: MINERVA Vital Signs Vital signs: Vital Signs - 8 hr 08/25/22 10:00 08/25/22 10:53 08/25/22 11:00 Temperature 97.2 F L Pulse Rate 70 57 L Respiratory Rate 15 Blood Pressure 141/65 H 105/58 L Pulse Oximetry 99 99 Oxygen Delivery Method Room Air 08/25/22 11:00 08/25/22 11:30 08/25/22 11:30 Temperature Pulse Rate 59 L 64 Respiratory Rate Blood Pressure 100/58 L Pulse Oximetry 98 99 Oxygen Delivery Method 08/25/22 12:00 08/25/22 14:28 Temperature Pulse Rate 65 65 Respiratory Rate 19 Blood Pressure 121/63 Pulse Oximetry 99 100 Oxygen Delivery Method Room Air MDM - Abdominal Pain <MILTON RomeroP - Last Filed: 08/25/22 16:58> Lab Data 08/25/22 10:19 08/25/22 10:19 Labs: Lab Results 08/25/22 08/25/22 08/25/22 Range/Units 10:19 10:19 12:15 WBC 5.8 (4.5-11.0) X10^3/uL RBC 4.33 (4.0-5.2) X10^6/uL Hgb 11.4 L (12.0-16.0) g/dL Hct 33.5 L (36-46) % MCV 77.5 L (80-100) fL MCH 26.2 (26-34) PG MCHC 33.8 (30-36) % RDW 16.0 H (11.6-14.8) % Plt Count 303 (150-400) X10^3/uL Neut % (Auto) 58.2 (50-75) % Lymph % (Auto) 32.8 (25-40) % Pitt % (Auto) 6.9 (3-14) % Eos % (Auto) 1.5 L (2-4) % Baso % (Auto) 0.6 (0-2) % Neut # (Auto) 3400 (3172-2700) /uL Lymph # (Auto) 1900 (3001-3859) /uL Pitt # (Auto) 400 (0-900) /uL Eos # (Auto) 100 (0-450) /uL Baso # (Auto) 0 (0-100) /uL Sodium 140 (137-145) mmol/L Potassium 3.9 (3.4-5.1) mmol/L Chloride 104 (98-107) mmol/L Carbon Dioxide 27 (22-32) mmol/L BUN 8 (7-17) mg/dL Creatinine 0.59 (0.52-1.04) mg/dL Estimated GFR > 60 (>60) mL/min BUN/Creatinine Ratio 13.6 (6-22) Glucose 90 (70-100) mg/dL Calcium 8.7 (8.4-10.2) mg/dL Magnesium (1.6-2.3) mg/dL Total Bilirubin 0.8 (0.2-1.3) mg/dL AST 13 L (14-36) IU/L ALT 15 (<35) IU/L Alkaline Phosphatase 60 (38-126) U/L C-Reactive Protein (<1.0) mg/dL Total Protein 7.1 (6.3-8.2) g/dL Albumin 4.2 (3.5-5.0) g/dL Globulin 2.9 (1.7-4.1) g/dL Albumin/Globulin Ratio 1.4 (1.0-2.8) Lipase 116 (23-300) U/L Urine RBC None seen (0-5/HPF) Urine WBC 0-1/hpf (0-5/HPF) Urine Bacteria Occasional (0-1) (None) Ur Culture Indicated? Cult not indicated SARS-CoV-2 (PCR) (Negative) Influenza A (RT-PCR) (NEGATIVE) Influenza B (RT-PCR) (NEGATIVE) RSV (PCR) (Negative) 08/25/22 08/25/22 Range/Units 12:15 13:45 WBC (4.5-11.0) X10^3/uL RBC (4.0-5.2) X10^6/uL Hgb (12.0-16.0) g/dL Hct (36-46) % MCV (80-100) fL MCH (26-34) PG MCHC (30-36) % RDW (11.6-14.8) % Plt Count (150-400) X10^3/uL Neut % (Auto) (50-75) % Lymph % (Auto) (25-40) % Pitt % (Auto) (3-14) % Eos % (Auto) (2-4) % Baso % (Auto) (0-2) % Neut # (Auto) (9806-8514) /uL Lymph # (Auto) (4266-1483) /uL Pitt # (Auto) (0-900) /uL Eos # (Auto) (0-450) /uL Baso # (Auto) (0-100) /uL Sodium (137-145) mmol/L Potassium (3.4-5.1) mmol/L Chloride (98-107) mmol/L Carbon Dioxide (22-32) mmol/L BUN (7-17) mg/dL Creatinine (0.52-1.04) mg/dL Estimated GFR (>60) mL/min BUN/Creatinine Ratio (6-22) Glucose (70-100) mg/dL Calcium (8.4-10.2) mg/dL Magnesium 1.9 (1.6-2.3) mg/dL Total Bilirubin (0.2-1.3) mg/dL AST (14-36) IU/L ALT (<35) IU/L Alkaline Phosphatase (38-126) U/L C-Reactive Protein < 0.5 (<1.0) mg/dL Total Protein (6.3-8.2) g/dL Albumin (3.5-5.0) g/dL Globulin (1.7-4.1) g/dL Albumin/Globulin Ratio (1.0-2.8) Lipase (23-300) U/L Urine RBC (0-5/HPF) Urine WBC (0-5/HPF) Urine Bacteria (None) Ur Culture Indicated? SARS-CoV-2 (PCR) Negative (Negative) Influenza A (RT-PCR) Flu a negative (NEGATIVE) Influenza B (RT-PCR) Flu b negative (NEGATIVE) RSV (PCR) Negative (Negative) Point of care testing: Point of Care Testing Test Results Negative Urine Dip Bedside Urine Glucose Negative Bedside Urine Bilirubin - Negative Bedside Urine Ketone - Negative Urine Specific [place] 1.005 Bedside Urine Occult Blood - Negative Bedside Urine pH 7.0 Bedside Urine Protein - Negative Bedside Urine Urobilinogen - Negative Bedside Urine Nitrite - Negative Bedside Urine Leukocytes - Negative Esterase Imaging Data US - abdomen: Radiologist's Impression: PROCEDURE:? US ABDOMEN LIMITED ? INDICATIONS:? sharp RUQ pain w/vomiting, cholecystectomy ? TECHNIQUE:? Real-time scanning was performed of the right upper quadrant, with image documentation.? ? COMPARISON:? [facility], CT, CT ABDOMEN PELVIS WITH CONTRAST, 06/04/2021, 22:42. ? FINDINGS:? ? Liver:? Measures 16.7 cm.? Increased in echogenicity.? ? Gallbladder:? Surgically absent.? ? Biliary ducts:? Intrahepatic bile ducts are non-dilated.? Extrahepatic bile duct caliber measures 3 mm.? Normal is 6-7 mm or less in diameter, or 10 mm or less post-cholecystectomy.? ? Pancreas:? Visualized portions of the pancreas are sonographically normal.? ? Spleen:? Spleen is normal in size and homogeneous in echotexture.? ? Right kidney: Right kidney measures 11.5 cm long.? No hydronephrosis.? Incidental right kidney stone measuring 4 mm. ? IMPRESSION: 1. Increased hepatic echogenicity most consistent with hepatic steatosis. Other forms of hepatocellular disease could have similar appearance. ? 2. Post cholecystectomy. ? 3. Incidental nonobstructing right kidney stone measuring 4 mm suspected.? ? Dictated by: Rajesh Camarena M.D. on 08/25/2022 at 13:02 ? ? Approved by: Rajesh Camarena M.D. on 08/25/2022 at 13:08 ? ECG Data Interpretation: EKG independently reviewed by myself at 1230 reveals normal sinus rhythm at [60] bpm with regular axis and intervals. No STEMI, ST segment changes, arrhythmia, or acute ischemic changes. MDM Narrative Medical decision making narrative: Chief Complaint: Right upper quadrant pain status post cholecystectomy Differential diagnoses include but are not limited to: Ascending cholangitis, gastroenteritis, gastritis, esophagitis with underlying GERD, other acute viral process, appendicitis, pancreatitis, gastric/duodenal ulcer, appendicitis, infectious colitis, acute cystitis, acute hepatitis, nephrolithiasis, pyelonephritis, mesenteric ischemia, AAA, ACS/OK, STI, PID, ovarian cyst, fibroids, ectopic . Plan: Routine labs,abdominal US, urinalysis, lipase, and respiratory panel ordered.. ?Patient provided IV fluids 1 L NS, IV Zofran and Toradol and hydromorphone for discomfort. Pt is NPO at this time. Review of labs demonstrates: CBC is WNL, CMP demonstrates no elevation of liver enzymes or electrolyte abnormalities, total bilirubin of 0.8, magnesium of 1.9, UA is negative for bacteria, RBCs or WBCs, respiratory panel is negative for all tested viruses. ? Review of CT/US demonstrates findings of hepatic steatosis, post cholecystectomy with incidental nonobstructing right kidney stone measuring 4 mm suspected. Patient denies flank pain, UA without hematuria. Case discussed with Patient demonstrates relief of symptoms with pain medications, no further nausea or episodes of vomiting here. Troponin is negative, EKG without ST changes Doubt atypical ACS. No peritoneal signs on abdominal exam. Patient remains p.o. tolerant. Serial abdominal exam without increase in abdominal pain. Extensive conversation about ER return precautions and need for close follow-up. Patient's migraine has improved, her vitals remained stable without tachycardia, she is afebrile, recommend that she follow up with her primary care provider, return for worsening symptoms, was prescribed Zofran for nausea vomiting. Patient's symptoms improved over duration of stay with above-stated therapies. Social considerations that may affect disposition: None Questions are addressed and there is agreement with the plan and for follow-up. Patient is appropriate for outpatient management. MIPS: This encounter doesn't have any diagnosis' associated with MIPS criteria. <Polly Cee, DO - Last Filed: 09/02/22 07:36> Lab Data Labs: Lab Results 08/25/22 08/25/22 08/25/22 Range/Units 10:19 10:19 12:15 WBC 5.8 (4.5-11.0) X10^3/uL RBC 4.33 (4.0-5.2) X10^6/uL Hgb 11.4 L (12.0-16.0) g/dL Hct 33.5 L (36-46) % MCV 77.5 L (80-100) fL MCH 26.2 (26-34) PG MCHC 33.8 (30-36) % RDW 16.0 H (11.6-14.8) % Plt Count 303 (150-400) X10^3/uL Neut % (Auto) 58.2 (50-75) % Lymph % (Auto) 32.8 (25-40) % Pitt % (Auto) 6.9 (3-14) % Eos % (Auto) 1.5 L (2-4) % Baso % (Auto) 0.6 (0-2) % Neut # (Auto) 3400 (8883-7931) /uL Lymph # (Auto) 1900 (3265-0399) /uL Pitt # (Auto) 400 (0-900) /uL Eos # (Auto) 100 (0-450) /uL Baso # (Auto) 0 (0-100) /uL Sodium 140 (137-145) mmol/L Potassium 3.9 (3.4-5.1) mmol/L Chloride 104 (98-107) mmol/L Carbon Dioxide 27 (22-32) mmol/L BUN 8 (7-17) mg/dL Creatinine 0.59 (0.52-1.04) mg/dL Estimated GFR > 60 (>60) mL/min BUN/Creatinine Ratio 13.6 (6-22) Glucose 90 (70-100) mg/dL Calcium 8.7 (8.4-10.2) mg/dL Magnesium (1.6-2.3) mg/dL Total Bilirubin 0.8 (0.2-1.3) mg/dL AST 13 L (14-36) IU/L ALT 15 (<35) IU/L Alkaline Phosphatase 60 (38-126) U/L C-Reactive Protein (<1.0) mg/dL Total Protein 7.1 (6.3-8.2) g/dL Albumin 4.2 (3.5-5.0) g/dL Globulin 2.9 (1.7-4.1) g/dL Albumin/Globulin Ratio 1.4 (1.0-2.8) Lipase 116 (23-300) U/L Urine RBC None seen (0-5/HPF) Urine WBC 0-1/hpf (0-5/HPF) Urine Bacteria Occasional (0-1) (None) Ur Culture Indicated? Cult not indicated SARS-CoV-2 (PCR) (Negative) Influenza A (RT-PCR) (NEGATIVE) Influenza B (RT-PCR) (NEGATIVE) RSV (PCR) (Negative) 08/25/22 08/25/22 Range/Units 12:15 13:45 WBC (4.5-11.0) X10^3/uL RBC (4.0-5.2) X10^6/uL Hgb (12.0-16.0) g/dL Hct (36-46) % MCV (80-100) fL MCH (26-34) PG MCHC (30-36) % RDW (11.6-14.8) % Plt Count (150-400) X10^3/uL Neut % (Auto) (50-75) % Lymph % (Auto) (25-40) % [place] % (Auto) (3-14) % Eos % (Auto) (2-4) % Baso % (Auto) (0-2) % Neut # (Auto) (8014-3066) /uL Lymph # (Auto) (5382-3646) /uL Pitt # (Auto) (0-900) /uL Eos # (Auto) (0-450) /uL Baso # (Auto) (0-100) /uL Sodium (137-145) mmol/L Potassium (3.4-5.1) mmol/L Chloride (98-107) mmol/L Carbon Dioxide (22-32) mmol/L BUN (7-17) mg/dL Creatinine (0.52-1.04) mg/dL Estimated GFR (>60) mL/min BUN/Creatinine Ratio (6-22) Glucose (70-100) mg/dL Calcium (8.4-10.2) mg/dL Magnesium 1.9 (1.6-2.3) mg/dL Total Bilirubin (0.2-1.3) mg/dL AST (14-36) IU/L ALT (<35) IU/L Alkaline Phosphatase (38-126) U/L C-Reactive Protein < 0.5 (<1.0) mg/dL Total Protein (6.3-8.2) g/dL Albumin (3.5-5.0) g/dL Globulin (1.7-4.1) g/dL Albumin/Globulin Ratio (1.0-2.8) Lipase (23-300) U/L Urine RBC (0-5/HPF) Urine WBC (0-5/HPF) Urine Bacteria (None) Ur Culture Indicated? SARS-CoV-2 (PCR) Negative (Negative) Influenza A (RT-PCR) Flu a negative (NEGATIVE) Influenza B (RT-PCR) Flu b negative (NEGATIVE) RSV (PCR) Negative (Negative) Point of care testing: Point of Care Testing Test Results Negative Urine Dip Bedside Urine Glucose Negative Bedside Urine Bilirubin - Negative Bedside Urine Ketone - Negative Urine Specific [place] 1.005 Bedside Urine Occult Blood - Negative Bedside Urine pH 7.0 Bedside Urine Protein - Negative Bedside Urine Urobilinogen - Negative Bedside Urine Nitrite - Negative Bedside Urine Leukocytes - Negative Esterase Discharge Plan Departure Patient Disposition: Home Clinical Impression: Hepatic steatosis, Abdominal pain, RUQ Instructions: Acute Abdominal Pain, DI for Viral Gastroenteritis -- Adult Activity Restrictions/Additional Instructions: *You have been diagnosed with right upper quadrant pain to your abdomen with nausea, vomiting, diarrhea and 2 days fever and chills. This is most likely a viral process as your abdominal workup today does not show up bacterial process, inflammatory marker elevation electrolyte abnormality or problems with your liver, kidneys or other organs. The urine does not show infection either. This is all reassuring and I am sorry that it does not offer a reason for your compl aints. The respiratory panel is delayed and is taking a long time to process. If it is positive for COVID or for flu, we will call you back and share this information. Please treat this like a viral gastroenteritis and try to replace what you lose. Use Zofran as needed for nausea and vomiting, take it with Tylenol and ibuprofen for headache as it will offer better results. I hope you feel better soon, sorry for your symptoms. *What to do: *Please continue to take your regular medications as directed. [x ] New medication prescriptions sent to your pharmacy: [[facility]] [ ] New medication written as a paper prescription [ ] No new medications given *Please follow up with your primary care provider in 2-3 days, call for an appointment. Let them know you were seen in the Emergency Department and that we asked that you be seen for follow-up. We will electronically transmit a record of today's note if your PCP is in our system *If you do not have a primary care provider please contact [phone] to establish care with one of the [facility] primary care providers. *Return to Emergency Department if you should have any new, worsening, or concerning symptoms, such as [fever greater than 101F, chills, worsening pain, persistent vomiting or other bothersome symptoms]. Prescriptions: New ondansetron 4 mg tablet,disintegrating 4 mg PO Q8H PRN (Reason: nausea and vomiting) Qty: 14 0RF No Action ondansetron 4 mg tablet,disintegrating 4 mg PO TID-QID PRN (Reason: nausea and vomiting) Qty: 10 0RF Topamax See Rx Instructions .ROUTE .COMPLEX Rx Instructions: as instructed Referrals: Olga Schuler, RESISTOR INSPECTOR [Primary Care Provider] - Stand Alone Forms: Patient Portal/API <Polly Cee DO - Last Filed: 09/02/22 07:36> Cosign ED Attending Cosignature Attestation: I was immediately available in the department for consultation. Documentation has been reviewed. Case was reviewed.
--- NOTE | 2022-08-25 12:20 | DI.US.S_ITS ---
PROCEDURE: US ABDOMEN LIMITED INDICATIONS: sharp RUQ pain w/vomiting, cholecystectomy TECHNIQUE: Real-time scanning was performed of the right upper quadrant, with image documentation. COMPARISON: [facility], CT, CT ABDOMEN PELVIS WITH CONTRAST, 06/04/2021, 22:42. FINDINGS: Liver: Measures 16.7 cm. Increased in echogenicity. Gallbladder: Surgically absent. Biliary ducts: Intrahepatic bile ducts are non-dilated. Extrahepatic bile duct caliber measures 3 mm. Normal is 6-7 mm or less in diameter, or 10 mm or less post-cholecystectomy. Pancreas: Visualized portions of the pancreas are sonographically normal. Spleen: Spleen is normal in size and homogeneous in echotexture. Right kidney: Right kidney measures 11.5 cm long. No hydronephrosis. Incidental right kidney stone measuring 4 mm. IMPRESSION: 1. Increased hepatic echogenicity most consistent with hepatic steatosis. Other forms of hepatocellular disease could have similar appearance. 2. Post cholecystectomy. 3. Incidental nonobstructing right kidney stone measuring 4 mm suspected. Dictated by: Rajesh Camarena M.D. on 08/25/2022 at 13:02 Approved by: Rajesh Camarena M.D. on 08/25/2022 at 13:08
[2022-08-25 12:42] LABS: C-Reactive Protein Quant < 0.5 mg/dL (<1.0); Magnesium 1.9 mg/dL (1.6-2.3)
[2022-08-25] MEDS: DEXAMETHASONE 10 MG/ML VIAL IV (12:50)
[2022-08-25] MEDS: KETOROLAC 30 MG/ML VIAL 15 MG IV (12:50)
[2022-08-25] MEDS: SODIUM CHLORIDE 0.9% 1,000 ML 1000 ML IV (12:50)
[2022-08-25] MEDS: ONDANSETRON 4 MG/2 ML INJ IV (12:50)
[2022-08-25] MEDS: diphenhydrAMINE 50 MG/ML VIAL 25 MG IV (12:51)
[2022-08-25 13:36] LABS: Bacteria Urine Occasional (0-1); Culture Indicated Urine Cult Not Indicated; RBC Urine None Seen (0-5/HPF); WBC Urine 0-1/HPF (0-5/HPF)
[2022-08-25] MEDS: HYDROMORPHONE 0.5 MG INJ IV (13:59)
[2022-08-25 14:28] VITALS: BP 121/63; PULSE 65; RESP 19; O2SAT 100
[2022-08-25 14:28] LABS: COVID-19 CEPHEID 4-PLEX PCR Negative (Negative); Influenza A - CEPHEID Flu A NEGATIVE (NEGATIVE); Influenza B - CEPHEID Flu B NEGATIVE (NEGATIVE); Respiratory Syncytial Virus Negative (Negative)
== END 2022-08-25 14:28 | disposition home or self-care (01) ==
PROVIDERS: Emergency Medicine; Emergency Provider Nurse Practitioner Critical Care Medicine; PCP Nurse Practitioner
DX: R10.11 Right upper quadrant pain (principal); R50.9 Fever, unspecified; K76.0 Fatty (change of) liver, not elsewhere classified; Z20.822 Contact with and (suspected) exposure to COVID-19
CPT/HCPCS: 0241U; 36415; 76705; 80053; 81003; 81015; 81025; 83690; 83735; 85025; 86140; 93005; 96361; 96374; 96375; 99284; J1100; J1170; J1200; J1885; J2405

== ENCOUNTER 2023-02-28 16:50 | Emergency (ER) | payer OTHER, SELFPAY ==
[2023-02-28] VITALS (10 sets, daily range): BP systolic 115–131; BP diastolic 59–80; PULSE 58–77; RESP 18; TEMP 37; O2SAT 97–100; BMI 28.8
[2023-02-28 18:14] LABS: Alanine Aminotransferase 18 IU/L (<35); Albumin 4.6 g/dL (3.5-5.0); Albumin Globulin Ratio 1.4 (1.0-2.8); Alkaline Phosphatase 69 U/L (38-126); Aspartate Aminotransferase 14 IU/L (14-36); Bilirubin Total 1.1 mg/dL (0.2-1.3); Blood Urea Nitrogen 9 mg/dL (7-17); Calcium 9.1 mg/dL (8.4-10.2); Carbon Dioxide 27 mmol/L (22-32); Chloride 103 mmol/L (98-107); Estimated Glomerular Filt Rate > 60 mL/min (>60); Globulin 3.2 g/dL (1.7-4.1); Glucose 84 mg/dL (70-100); HEMOLYSIS < 15 (0-50); Lipase 105 U/L (23-300); Potassium 3.8 mmol/L (3.4-5.1); Sodium 138 mmol/L (137-145); Total Protein 7.8 g/dL (6.3-8.2)
[2023-02-28 18:20] LABS: Add Manual Diff / Slide Review NO; Basophils Absolute Auto 0 /uL (0-100); Basophils Percent Auto 0.3 % (0-2); Eosinophils Absolute Auto 100 /uL (0-450); Eosinophils Percent Auto 0.8 % (2-4); Hematocrit 40.2 % (36-46); Hemoglobin 14.2 g/dL (12.0-16.0); Lymphocytes Absolute Auto 2700 /uL (1100-4500); Mean Corpuscular HGB Conc 35.3 % (30-36); Mean Corpuscular Hemoglobin 30.9 PG (26-34); Mean Corpuscular Volume 87.6 fL (80-100); Monocytes Absolute Auto 500 /uL (0-900); Monocytes Percent Auto 5.3 % (3-14); Neutrophils Absolute Auto 6700 /uL (1500-7000); Neutrophils Percent Auto 66.6 % (50-75); Platelet Count 239 X10^3/uL (150-400); Red Blood Cell Count 4.59 X10^6/uL (4.0-5.2); Red Cell Distribution Width 15.3 % (11.6-14.8)
--- NOTE | 2023-02-28 20:39 | DI.CT.S_ITS ---
PROCEDURE: CT ABDOMEN PELVIS W CON INDICATIONS: RLQ pain TECHNIQUE: After the administration of IV contrast, axial sections were acquired from the lung bases to the pubic symphysis. Coronal and sagittal reformats were performed. For radiation dose reduction, the following was used: automated exposure control, adjustment of mA and/or kV according to patient size. COMPARISON: [facility], CT, CT ABDOMEN PELVIS WITH CONTRAST, 06/04/2021, 22:42. FINDINGS: Image quality: Excellent. Lung bases: Unremarkable. Heart: Heart is normal in size. ABDOMEN: Liver: No mass lesion. Gallbladder: Surgically absent. Biliary ducts: No biliary ductal dilatation. Pancreas: Unremarkable. Spleen: Normal in size. Adrenal Glands: No adrenal nodules. Kidneys and Ureters: No hydronephrosis. Stomach and Bowel: Stomach, small bowel loops, and colon are normal in caliber and wall thickness. The appendix is normal. Peritoneum: No abnormal intraperitoneal fluid. No free air. Ventral Wall: No hernia. Abdominal Nodes: No retroperitoneal or mesenteric adenopathy by size criteria. Vessels: Aorta and inferior vena cava are normal in size. PELVIS: Pelvic Organs: Unremarkable. Bladder: Unremarkable. Pelvic Nodes: No enlarged lymph nodes. Miscellaneous: No inguinal hernias are seen. Bones: Visualized osseous structures demonstrate no suspicious focal lesions. IMPRESSION: 1. No definite acute intra-abdominal abnormality. Specifically, no evidence of appendicitis. Dictated by: Saud Velez M.D. on 02/28/2023 at 22:44 Approved by: Saud Velez M.D. on 02/28/2023 at 22:46
--- NOTE | 2023-02-28 23:06 | ED.ABDPAIN ---
HPI - Abdominal Pain General Chief Complaint: Abdominal Pain Stated Complaint: Poss appendicitis Time Seen by Provider: 02/28/23 20:39 Source: patient Mode of arrival: Ambulatory History of Present Illness HPI narrative: Patient 37-year-old healthy female presents today with sudden onset of right lower quadrant pain. Comes and goes sharp and stabbing in nature. Feeling nauseous no vomiting no fever. No significant flank pain. She denies any ovarian cysts. She has been able to eat and drink throughout the day. Related Data Home Medications Medication Instructions Recorded Confirmed Topamax See Rx Instructions .Route .COMPLEX 04/04/22 04/04/22 Previous Rx's Medication Instructions Recorded ondansetron 4 mg disintegrating 4 mg PO TID-QID PRN nausea and 11/24/20 tablet vomiting #10 tabs ondansetron 4 mg disintegrating 4 mg PO Q8H PRN nausea and 08/25/22 tablet vomiting #14 tabs ondansetron 4 mg disintegrating 4 mg PO Q8H PRN nausea and 03/01/23 tablet vomiting #10 tabs Allergies Allergy/AdvReac Type Severity Reaction Status Date / Time sumatriptan [From Imitrex] Allergy Severe Swelling Verified 08/25/22 10:03 of Lip/Tongue/Throat morphine Allergy Rash Verified 08/25/22 10:00 Review of Systems Review of Systems ROS Unobtainable: All systems reviewed & are unremarkable except as noted in HPI and below Patient History Medical History Abnormal Pap smear of cervix (~2014) Anemia Ankle pain Anxiety (~2016) Chicken pox (~1989) Chlamydia (~2013) Chronic back pain Headache Heavy menstrual period (~1997) Human papilloma virus (~2014) Irritable bowel syndrome Migraines Painful menstrual periods (~2001) Shoulder pain Surgical History Anesthesia History of section History of cholecystectomy (~2020) S/P tubal ligation Family History Father Diabetes mellitus History of heart disease Hypertension Hyperlipidemia Mental health problem Brother History of bipolar disorder ADHD Cancer Mental health problem Brain tumor Seizures Grandfather Diabetes mellitus Hypertension Hyperlipidemia Stroke Grandmother History of heart disease Family/Other Eczema Social History household members: spouse Smoking Status: Never smoker alcohol intake: never Smoking Status: Never smoker alcohol intake frequency: holidays/special occasions only Substance Use Type: does not use Exam Initial Vital Signs Initial Vital Signs: Vital Signs Temperature 98.6 F 02/28/23 17:06 Pulse Rate 64 02/28/23 17:06 Respiratory Rate 18 02/28/23 17:06 Blood Pressure 118/67 02/28/23 17:06 Pulse Oximetry 100 02/28/23 17:06 Oxygen Delivery Method Room Air 02/28/23 17:06 GENERAL: Alert well-appearing 37-year-old female HEENT: Head atraumatic,EOMI, pupils reactive, face symmetric, moist mucous membranes CARDIOVASCULAR: Regular rate and rhythm without murmurs, rubs or gallops. RESPIRATORY: Breath sounds equal bilaterally, no wheezes rales or rhonchi. ABDOMEN: Soft, tender in right lower quadrant minimal guarding no rebound : No CVA tenderness EXTREMITIES: Normal range of motion, no clubbing or edema. Neurovascularly intact NEUROLOGICAL: Alert and oriented x4.Normal gait and speech. SKIN: Warm, dry, no laceration, no petechiae, no rashes or lesions. Course Orders Ordered: ED Orders 02/28/23 23:11 US pelvic complete Stat Discontinued Medications Ketorolac Tromethamine (Ketorolac 30 Mg/Ml Vial) 15 mg IV NOW ONE Stop: 02/28/23 23:12 Last Admin: 02/28/23 23:21 Dose: 15 mg Documented By: MIGEL Ondansetron HCl (Ondansetron 4 Mg Odt) 4 mg PO NOW PRN PRN Reason: Nausea And Vomiting Ondansetron HCl (Ondansetron 4 Mg/2 Ml Inj) 4 mg IV NOW PRN PRN Reason: Nausea And Vomiting Ondansetron HCl (Ondansetron 4 Mg/2 Ml Inj) 4 mg IV NOW ONE Stop: 02/28/23 23:12 Last Admin: 02/28/23 23:21 Dose: 4 mg Documented By: MIGEL Vital Signs Vital signs: Vital Signs - 8 hr 02/28/23 22:30 02/28/23 22:30 02/28/23 23:00 Pulse Rate 67 Blood Pressure 119/63 121/64 Pulse Oximetry 97 Oxygen Delivery Method 02/28/23 23:00 02/28/23 23:30 03/01/23 00:00 Pulse Rate 64 58 L 54 L Blood Pressure Pulse Oximetry 98 98 99 Oxygen Delivery Method 03/01/23 00:30 03/01/23 01:00 03/01/23 01:30 Pulse Rate 58 L 64 78 Blood Pressure Pulse Oximetry 98 98 98 Oxygen Delivery Method 03/01/23 01:31 03/01/23 01:31 Pulse Rate 68 Blood Pressure 128/59 L Pulse Oximetry 98 Oxygen Delivery Method Room Air MDM - Abdominal Pain Lab Data 02/28/23 17:00 02/28/23 17:00 Labs: Lab Results 02/28/23 02/28/23 Range/Units 17:00 17:00 WBC 10.0 (4.5-11.0) X10^3/uL RBC 4.59 (4.0-5.2) X10^6/uL Hgb 14.2 (12.0-16.0) g/dL Hct 40.2 (36-46) % MCV 87.6 (80-100) fL MCH 30.9 (26-34) PG MCHC 35.3 (30-36) % RDW 15.3 H (11.6-14.8) % Plt Count 239 (150-400) X10^3/uL Neut % (Auto) 66.6 (50-75) % Lymph % (Auto) 27.0 (25-40) % [place] % (Auto) 5.3 (3-14) % Eos % (Auto) 0.8 L (2-4) % Baso % (Auto) 0.3 (0-2) % Neut # (Auto) 6700 (3534-4672) /uL Lymph # (Auto) 2700 (3397-8913) /uL [place] # (Auto) 500 (0-900) /uL Eos # (Auto) 100 (0-450) /uL Baso # (Auto) 0 (0-100) /uL Sodium 138 (137-145) mmol/L Potassium 3.8 (3.4-5.1) mmol/L Chloride 103 (98-107) mmol/L Carbon Dioxide 27 (22-32) mmol/L BUN 9 (7-17) mg/dL Creatinine 0.60 (0.52-1.04) mg/dL Estimated GFR > 60 (>60) mL/min BUN/Creatinine Ratio 15.0 (6-22) Glucose 84 (70-100) mg/dL Calcium 9.1 (8.4-10.2) mg/dL Total Bilirubin 1.1 (0.2-1.3) mg/dL AST 14 (14-36) IU/L ALT 18 (<35) IU/L Alkaline Phosphatase 69 (38-126) U/L Total Protein 7.8 (6.3-8.2) g/dL Albumin 4.6 (3.5-5.0) g/dL Globulin 3.2 (1.7-4.1) g/dL Albumin/Globulin Ratio 1.4 (1.0-2.8) Lipase 105 (23-300) U/L Point of care testing: Point of Care Testing Test Results Negative Urine Dip Bedside Urine Glucose Negative Bedside Urine Bilirubin - Negative Bedside Urine Ketone - Negative Urine Specific [place] 1.020 Bedside Urine Occult Blood - Negative Bedside Urine pH 6.0 Bedside Urine Protein - Negative Bedside Urine Urobilinogen - Negative Bedside Urine Nitrite - Negative Bedside Urine Leukocytes - Negative Esterase Imaging Data CT scan - abdomen/pelvis: Radiologist's Impression: PROCEDURE:? CT ABDOMEN PELVIS W CON ? INDICATIONS:? RLQ pain ? TECHNIQUE:? After the administration of IV contrast, axial sections were acquired from the lung bases to the pubic symphysis.? Coronal and sagittal reformats were performed.? For radiation dose reduction, the following was used:? automated exposure control, adjustment of mA and/or kV according to patient size. ? COMPARISON:? [facility], CT, CT ABDOMEN PELVIS WITH CONTRAST, 06/04/2021, 22:42. ? FINDINGS:? Image quality:? Excellent.? ? Lung bases:? Unremarkable.? ? Heart:? Heart is normal in size. ? ? ABDOMEN: Liver:? No mass lesion. Gallbladder:? Surgically absent. Biliary ducts:? No biliary ductal dilatation.? ? Pancreas:? Unremarkable.? ? Spleen:? Normal in size.? ? Adrenal Glands:? No adrenal nodules.? ? Kidneys and Ureters:? No hydronephrosis.? ? ? Stomach and Bowel:? Stomach, small bowel loops, and colon are normal in caliber and wall thickness.? The appendix is normal.? Peritoneum:? No abnormal intraperitoneal fluid.? No free air.? ? Ventral Wall: ? No hernia.? Abdominal Nodes:? No retroperitoneal or mesenteric adenopathy by size criteria.? Vessels:? Aorta and inferior vena cava are normal in size.? ? PELVIS: Pelvic Organs:? Unremarkable.? ? Bladder:? Unremarkable.? ? Pelvic Nodes: No enlarged lymph nodes.? Miscellaneous: No inguinal hernias are seen. ? ? ? Bones:? Visualized osseous structures demonstrate no suspicious focal lesions. ? IMPRESSION:? ? 1.? No definite acute intra-abdominal abnormality.? Specifically, no evidence of appendicitis.? ? ? Dictated by: Saud Velez M.D. on 02/28/2023 at 22:44 US - RETANNER: Radiologist's Impression: PROCEDURE:? US PELVIC COMPLETE ? INDICATIONS:? RIGHT PELVIC PAIN ? TECHNIQUE:? Real-time scanning was performed of the pelvic organs, with image documentation.? Additional endovaginal scanning was necessary due to incomplete visualization of the adnexal and endometrial structures by transabdominal scanning.? ? COMPARISON:? [facility], CT, CT ABDOMEN PELVIS W CON, 02/28/2023, 20:47. ? FINDINGS:? ?? Uterus:? Uterus is anteverted and measures 7.3 x 4.1 x 5.4 cm.? Endometrium measures up to 0.5 cm in thickness.? ? Ovaries:? The right ovary measures 2.2 x 1.9 x 1.3 cm, with a calculated ovarian volume of 2.8 cc. The left ovary measures 2.0 x 2.4 x 1.9 cm, with a calculated ovarian volume of 4.9 cc. The ovaries have a normal sonographic appearance. Less than 12 follicles can be seen in each ovary.? No adnexal masses.? There is bilateral arterial flow demonstrated within the ovaries.? A simple cyst in the left ovary consistent with a prominent follicle measuring up to 1.1 cm is noted. ? Other:? No pathologic free abdominal or pelvic fluid. ? ? IMPRESSION:? ? 1. No evidence of ovarian torsion.? We strive to produce accurate, complete, and clear reports of imaging services. To assist us in improving patient care, this report was composed using standard report templates and voice recognition software. Therefore, it may contain abnormal punctuation, insertions and/or omissions. Occasional wrong-word or sound-alike substitutions may occur. Though we review the report and make efforts to correct it, we do recommend that the report be read carefully in proper context to recognize any text inaccuracies. ? ? Dictated by: Saud Velez M.D. on 03/01/2023 at 1:19 ?? MDM Narrative Medical decision making narrative: Patient 37-year-old female presenting today with sudden onset right lower quadrant pain coming and going in waves. He is no fever leukocytosis she has been nauseated without up hitting. CT does not show any cause of pain no nephro lithiasis diverticulitis appendicitis. Ultrasound pelvis is also ordered which does not show any ovarian torsion abscess or her etiology. She has been ambulatory to the restroom couple of times no significant pain. This time recommend outpatient follow-up possible. Discharge Plan Departure Patient Disposition: Home Clinical Impression: Abdominal pain Instructions: DI for Abdominal Pain-Adult Activity Restrictions/Additional Instructions: *You have been diagnosed with abdominal pain *What to do: At this time no cause of your abdominal pain is found. Please continue to monitor *Continue to take medications as directed Zofran 4 mg every 8 hours if needed for nausea or vomiting--> [facility] *Follow up with your primary care provider in 2-3 days or call [phone] *Return to ER if you should have increasing pain nausea vomiting fever or any new, worsening or concerning symptoms Prescriptions: New ondansetron 4 mg tablet,disintegrating 4 mg PO Q8H PRN (Reason: nausea and vomiting) Qty: 10 0RF No Action ondansetron 4 mg tablet,disintegrating 4 mg PO TID-QID PRN (Reason: nausea and vomiting) Qty: 10 0RF Topamax See Rx Instructions .ROUTE .COMPLEX Rx Instructions: as instructed ondansetron 4 mg tablet,disintegrating 4 mg PO Q8H PRN (Reason: nausea and vomiting) Qty: 14 0RF Referrals: Olga Schuler ARNP [Primary Care Provider] - Stand Alone Forms: Patient Portal/API
--- NOTE | 2023-02-28 23:11 | DI.US.S_ITS ---
PROCEDURE: US PELVIC COMPLETE INDICATIONS: RIGHT PELVIC PAIN TECHNIQUE: Real-time scanning was performed of the pelvic organs, with image documentation. Additional endovaginal scanning was necessary due to incomplete visualization of the adnexal and endometrial structures by transabdominal scanning. COMPARISON: [facility], CT, CT ABDOMEN PELVIS W CON, 02/28/2023, 20:47. FINDINGS: Uterus: Uterus is anteverted and measures 7.3 x 4.1 x 5.4 cm. Endometrium measures up to 0.5 cm in thickness. Ovaries: The right ovary measures 2.2 x 1.9 x 1.3 cm, with a calculated ovarian volume of 2.8 cc. The left ovary measures 2.0 x 2.4 x 1.9 cm, with a calculated ovarian volume of 4.9 cc. The ovaries have a normal sonographic appearance. Less than 12 follicles can be seen in each ovary. No adnexal masses. There is bilateral arterial flow demonstrated within the ovaries. A simple cyst in the left ovary consistent with a prominent follicle measuring up to 1.1 cm is noted. Other: No pathologic free abdominal or pelvic fluid. IMPRESSION: 1. No evidence of ovarian torsion. We strive to produce accurate, complete, and clear reports of imaging services. To assist us in improving patient care, this report was composed using standard report templates and voice recognition software. Therefore, it may contain abnormal punctuation, insertions and/or omissions. Occasional wrong-word or sound-alike substitutions may occur. Though we review the report and make efforts to correct it, we do recommend that the report be read carefully in proper context to recognize any text inaccuracies. Dictated by: Saud Velez M.D. on 03/01/2023 at 1:19 Approved by: Saud Velez M.D. on 03/01/2023 at 1:22
[2023-02-28] MEDS: ONDANSETRON 4 MG/2 ML INJ IV (23:21)
[2023-02-28] MEDS: KETOROLAC 30 MG/ML VIAL 15 MG IV (23:21)
[2023-03-01] VITALS: PULSE 54; O2SAT 99
[2023-03-01 00:30] VITALS: PULSE 58; O2SAT 98
[2023-03-01 01:00] VITALS: PULSE 64; O2SAT 98
[2023-03-01 01:30] VITALS: PULSE 78; O2SAT 98
[2023-03-01 01:31] VITALS: BP 128/59; PULSE 68; O2SAT 98
== END 2023-03-01 01:39 | disposition home or self-care (01) ==
PROVIDERS: Emergency Medicine; Emergency Provider Emergency Medicine; PCP Nurse Practitioner
DX: R10.31 Right lower quadrant pain (principal); R10.2 Pelvic and perineal pain
CPT/HCPCS: 36415; 74177; 76830; 76856; 80053; 81003; 81025; 83690; 85025; 93975; 96374; 96375; 99284; J1885; J2405; Q9967

== ENCOUNTER 2023-09-25 14:14 | Emergency (ER) | payer OTHER, SELFPAY ==
[2023-09-25] VITALS (9 sets, daily range): BP systolic 106–142; BP diastolic 61–94; PULSE 58–80; RESP 14–25; TEMP 36.7–36.8; O2SAT 93–100; BMI 28.3
--- NOTE | 2023-09-25 15:43 | DI.CT.S_ITS ---
PROCEDURE: CT ANGIO HEAD AND NECK INDICATIONS: headache, stutter TECHNIQUE: After the administration of intravenous contrast, 1 mm thick sections acquired from the aortic arch through the [place] of [place]. 3-dimensional artqxeg-evlinluza-hdommtzixm (MIP) and/or volume rendering reformats were acquired of the central intracranial vasculature and neck separately. For radiation dose reduction, the following was used: automated exposure control, adjustment of mA and/or kV according to patient size. COMPARISON: [facility], CT, CT ANGIO HEAD AND NECK, 10/20/2021, 0:52. FINDINGS: Image quality: Diagnostic. BRAIN: Please refer to separately dictated CT of the head. HEAD CT ANGIOGRAPHY: Anterior circulation: Intracranial internal carotid arteries are normal in size and flow. The flow within the paired anterior cerebral arteries is normal and symmetric. The flow within the middle cerebral arteries is normal and symmetric. The anterior communicating artery is seen. No aneurysms are seen. Posterior circulation: Visualized portions of the vertebral arteries demonstrate normal caliber, and join to form a normal appearing basilar artery. Flow within the posterior cerebral arteries is normal and symmetric. No aneurysms are seen. NECK CT ANGIOGRAPHY: Carotid system: The great vessels demonstrate a conventional anatomy as they arise from the aortic arch. The origins of the common carotid arteries appear patent. The common carotid arteries demonstrate normal caliber and courses. The bifurcation regions are both widely patent. The internal carotid arteries demonstrate normal calibers and courses. Posterior circulation: The origins of the vertebral arteries both appear widely patent. The more superior extracranial portions of both vertebral arteries also demonstrate normal courses and calibers. They join to form a normal appearing basilar artery. Soft tissues: Visualized neck soft tissues demonstrate no suspicious abnormalities. Bones: No suspicious bony lesions. Visualized cervical spine appears normally aligned. IMPRESSION: No significant intracranial arterial abnormality is seen. No significant abnormality is seen within the arteries of the neck. Any quantitative measurements of stenosis were performed using NASCET criteria. Dictated by: Zain Wray M.D. on 09/25/2023 at 17:29 Approved by: Zain Wray M.D. on 09/25/2023 at 17:33
--- NOTE | 2023-09-25 15:45 | DI.CT.S_ITS ---
PROCEDURE: CT STROKE INDICATIONS: Positive BE-FAST, Stroke symptoms TECHNIQUE: Noncontrast 4.5 mm thick angled axial sections acquired from the foramen magnum to the vertex, with coronal reformats. For radiation dose reduction, the following was used: automated exposure control, adjustment of mA and/or kV according to patient size. COMPARISON: [facility], CT, CT HEAD TPA, 10/20/2021, 0:52. FINDINGS: Image quality: Diagnostic. CSF spaces: Basal cisterns are patent. No extra-axial fluid collections. Ventricles are normal in size and shape. Brain: No midline shift. No intracranial masses or hemorrhage. Ewing-white matter interface is normal. Skull and face: Calvarium and visualized facial bones are intact, without suspicious lesions. Sinuses: Visualized sinuses and mastoids are clear. IMPRESSION: No acute intracranial pathology. Findings discussed with ER physician at 5:22 p.m. On 09/25/2023. This study fulfills neurological imaging criteria for inclusion or exclusion of acute stroke therapies based on available published neurological imaging guidelines. Dictated by: Zain Wray M.D. on 09/25/2023 at 17:20 Approved by: Zain Wray M.D. on 09/25/2023 at 17:28
--- NOTE | 2023-09-25 15:45 | DI.RAD.S_ITS ---
PROCEDURE: XR CHEST 1V INDICATIONS: Possible stroke TECHNIQUE: One view of the chest was acquired. COMPARISON: [facility], , XR CHEST 1V, 01/22/2021, 16:14. FINDINGS: Surgical changes and devices: Cholecystectomy clips. Lungs and pleura: Lungs are clear. No pleural effusions or pneumothorax. Mediastinum: Mediastinal contours appear normal. Heart size is normal. Bones and chest wall: No suspicious bony lesions. Overlying soft tissues appear unremarkable. IMPRESSION: No acute pulmonary process. Dictated by: Mary Moses M.D. on 09/25/2023 at 16:47 Approved by: Mary Moses M.D. on 09/25/2023 at 16:48
[2023-09-25 16:31] LABS: Add Manual Diff / Slide Review NO; Basophils Absolute Auto 100 /uL (0-100); Basophils Percent Auto 0.6 % (0-2); Eosinophils Absolute Auto 100 /uL (0-450); Eosinophils Percent Auto 1.3 % (2-4); Hematocrit 42.7 % (36-46); Hemoglobin 15.1 g/dL (12.0-16.0); Lymphocytes Absolute Auto 2300 /uL (1100-4500); Mean Corpuscular HGB Conc 35.5 % (30-36); Mean Corpuscular Hemoglobin 31.4 PG (26-34); Mean Corpuscular Volume 88.4 fL (80-100); Monocytes Absolute Auto 500 /uL (0-900); Monocytes Percent Auto 5.6 % (3-14); Neutrophils Absolute Auto 6600 /uL (1500-7000); Neutrophils Percent Auto 68.5 % (50-75); Platelet Count 286 X10^3/uL (150-400); Red Blood Cell Count 4.83 X10^6/uL (4.0-5.2); Red Cell Distribution Width 13.1 % (11.6-14.8); White Blood Cell Count 9.6 X10^3/uL (4.5-11.0)
[2023-09-25 16:35] LABS: INR 1.1 (0.9-1.3); Prothrombin Time 12.1 SECONDS (9.4-12.5)
[2023-09-25 16:36] LABS: Ur Creatinine Normal (Normal); Ur Specific Gravity Normal (Normal); Urine Tetrahydrocannabinol Negative (Negative); Urine pH Normal (Normal)
[2023-09-25 16:37] LABS: UR Morphine/Opiate cutoff 300 Negative (Negative); Urine Amphetamines Negative (Negative); Urine Barbiturates Negative (Negative); Urine Benzodiazepines Negative (Negative); Urine Cocaine Negative (Negative); Urine MDMA Negative (Negative); Urine Methadone Negative (Negative); Urine Methamphetamines Negative (Negative); Urine Oxycodone Negative (Negative); Urine Phencyclidine Negative (Negative); Urine Tricyclic Antidepressant Negative (Negative)
[2023-09-25 16:38] LABS: PTT Partial Thromboplastin Tim 39 SECONDS (25.1-36.5)
[2023-09-25 16:41] LABS: Alanine Aminotransferase 22 IU/L (<35); Albumin 4.6 g/dL (3.5-5.0); Albumin Globulin Ratio 1.3 (1.0-2.8); Alkaline Phosphatase 73 U/L (38-126); Aspartate Aminotransferase 14 IU/L (14-36); BUN Creatinine Ratio 29.7 (6-22); Bilirubin Total 1.3 mg/dL (0.2-1.3); Blood Urea Nitrogen 19 mg/dL (7-17); Calcium 9.6 mg/dL (8.4-10.2); Carbon Dioxide 25 mmol/L (22-32); Chloride 106 mmol/L (98-107); Creatine Kinase 62 U/L (30-135); Estimated Glomerular Filt Rate > 60 mL/min (>60); Globulin 3.5 g/dL (1.7-4.1); Glucose 84 mg/dL (70-100); HEMOLYSIS < 15 (0-50); Magnesium 1.8 mg/dL (1.6-2.3); Potassium 4.4 mmol/L (3.4-5.1); Sodium 137 mmol/L (137-145); Total Protein 8.1 g/dL (6.3-8.2)
[2023-09-25] MEDS: METOCLOPRAMIDE 10 MG/2 ML INJ IV (16:41)
[2023-09-25] MEDS: ONDANSETRON 4 MG/2 ML INJ IV (16:41)
[2023-09-25] MEDS: diphenhydrAMINE 50 MG/ML VIAL 25 MG IV (16:41)
[2023-09-25] MEDS: SODIUM CHLORIDE 0.9% 1,000 ML 1000 ML IV (16:42)
[2023-09-25 16:44] LABS: Appearance Urine UA CLEAR; Bilirubin Urine UA NEGATIVE (NEGATIVE); Color Urine UA YELLOW; Glucose Urine UA NEGATIVE (Negative); Ketones Urine UA NEGATIVE (NEGATIVE); Leukocyte Esterase Urine UA NEGATIVE (NEGATIVE); Nitrite Urine UA NEGATIVE (Negative); Occult Blood Urine UA 3+ (Negative); Protein Urine UA NEGATIVE (Negative); Urobilinogen Urine UA 0.2 E.U./dL (0.2)
[2023-09-25 16:52] LABS: Troponin I < 0.012 ng/mL (0.01-0.034)
[2023-09-25 16:53] LABS: RBC Urine 10-30/HPF (0-5/HPF); Urine Volume 10mL (spun)
[2023-09-25 16:54] LABS: Bacteria Urine None Seen; Culture Indicated Urine Cult Not Indicated; Renal Epithelial Cells Urine 1-5/HPF (0-1/HPF); Squamous Epithelial Cell Urine 0-1 /HPF (0-5/HPF); WBC Urine None Seen (0-5/HPF)
--- NOTE | 2023-09-25 17:11 | ED_ITS ---
HPI - Neuro Symptoms/Deficit <Tammie Rich PA-C - Last Filed: 09/25/23 19:30> General Chief Complaint: Neuro Symptoms/Deficit Stated Complaint: migraine Time Seen by Provider: 09/25/23 14:39 Source: patient and family Mode of arrival: Ambulatory History of Present Illness HPI Narrative: 38-year-old female with past medical history migraines presents to the ED with 3 weeks of headache. Patient states that her headache feels just like her prior headaches, however it is more severe. Patient was seen last week at a walk-in clinic for the same complaint and was given a shot of Toradol with no relief. Patient also complains that for the last 5 days she has noticed some speech disturbances in the form of stuttering. Patient states she has in the past had my it is accompanied with speech disturbances. In April 2022, patient states that she had a migraine and was unable to speak. Patient was hospitalized and worked up overnight for a stroke. Patient is unclear what the diagnosis was. Patient denies fever, chills, chest pain, shortness of breath, nausea, vomiting, lightheadedness, dizziness, syncope. Patient complains of some blurry vision but no diplopia. Patient endorses normal gait. On Anticoagulants: No Related Data Home Medications Medication Instructions Recorded Confirmed Topamax See Rx Instructions .Route .COMPLEX 04/04/22 04/04/22 Previous Rx's Medication Instructions Recorded ondansetron 4 mg disintegrating 4 mg PO TID-QID PRN nausea and 11/24/20 tablet vomiting #10 tabs ondansetron 4 mg disintegrating 4 mg PO Q8H PRN nausea and 08/25/22 tablet vomiting #14 tabs ondansetron 4 mg disintegrating 4 mg PO Q8H PRN nausea and 03/01/23 tablet vomiting #10 tabs Allergies Allergy/AdvReac Type Severity Reaction Status Date / Time sumatriptan [From Imitrex] Allergy Severe Swelling Verified 08/25/22 10:03 of Lip/Tongue/Throat morphine Allergy Rash Verified 08/25/22 10:00 rizatriptan [From Maxalt] Allergy Verified 09/25/23 14:31 Review of Systems <Tammie Rich PA-C - Last Filed: 09/25/23 19:30> Constitutional Constitutional: Denies chills, Denies fatigue, Denies fever(s), Denies frequent falls, Reports headache(s), Denies lethargy and Denies weakness Eyes Eyes: Denies change in vision, Denies eye discharge, Denies irritation and Denies loss of vision ENT Ears, Nose, Mouth, and Throat: Denies change in voice, Denies dizziness, Reports headache(s), Denies neck pain, Denies sore throat and Denies throat swelling Cardiovascular Cardiovascular: Denies chest pain, Denies irregular heart rhythm, Denies lightheadedness, Denies palpitations, Denies dyspnea, Denies dyspnea on exertion and Denies orthopnea Respiratory Respiratory: Denies cough, Denies dyspnea, Denies dyspnea on exertion and Denies wheezing Gastrointestinal Gastrointestinal: Denies abdominal pain, Denies change in bowel habits, Denies diarrhea, Denies nausea and Denies vomiting Musculoskeletal Musculoskeletal: Denies neck pain and Denies numbness Integumentary/Breasts Skin/Breast: Denies pruritus, Denies erythema, Denies rash and Denies wounds Neurologic Neurologic: Reports abnormal speech, Denies behavioral changes, Denies confusion, Denies dizziness, Denies frequent falls, Reports headache(s), Denies loss of vision, Denies numbness and Denies weakness Psychiatric Psychiatric: Denies anxiety, Denies behavioral changes, Denies confusion, Denies depression, Denies homicidal ideation and Denies suicidal ideation Endocrine Endocrine: Denies fatigue, Denies flushing and Denies palpitations Hematologic/Lymphatic Hematologic/Lymphatic: Denies easy bruising On Anticoagulants: No Allergic/Immunologic Allergic/Immunologic: Denies urticaria, Denies throat swelling and Denies wheezing Patient History <Tammie Rich PA-C - Last Filed: 09/25/23 19:30> Medical History Anxiety (~2016) Migraines Headache Shoulder pain Chronic back pain Ankle pain Chicken pox (~1989) Anemia Painful menstrual periods (~2001) Human papilloma virus (~2014) Heavy menstrual period (~1997) Chlamydia (~2013) Abnormal Pap smear of cervix (~2014) Irritable bowel syndrome Surgical History S/P tubal ligation Anesthesia History of section History of cholecystectomy (~2020) Family History Father Diabetes mellitus History of heart disease Hypertension Hyperlipidemia Mental health problem Brother History of bipolar disorder ADHD Cancer Mental health problem Brain tumor Seizures Grandfather Diabetes mellitus Hypertension Hyperlipidemia Stroke Grandmother History of heart disease Family/Other Eczema Social History household members: spouse Smoking Status: Never smoker alcohol intake: never Smoking Status: Never smoker alcohol intake frequency: holidays/special occasions only Substance Use Type: does not use Exam <Tammie Rich PA-C - Last Filed: 09/25/23 19:30> Narrative Exam Narrative: Const General:?cooperative, healthy appearing and comfortable HENMT Head:?normal to inspection Ears:?hearing grossly normal bilaterally Nose:?external nose normal Face and sinus:?normal facial exam and sinuses nontender Mouth:?oral mucosae normal Throat:?posterior oropharynx normal Eyes General:?appearance normal, both eyes and all related structures Neck Neck:?normal visual inspection and no lymphadenopathy noted Resp Effort & Inspection:?normal respiratory effort Auscultation:?clear to auscultation bilaterally Cardio Rate:?regular rate Rhythm:?regular rhythm Neuro General:?patient alert, patient awake and patient oriented x3; PERRLA; gait normal; there is some slight stuttering, delayed speech. Patient is otherwise neurologically intact. GCS 15. NIHSS 1. Initial Vital Signs Initial Vital Signs: Vital Signs Temperature 98.3 F 09/25/23 14:25 Pulse Rate 71 09/25/23 14:25 Respiratory Rate 16 09/25/23 14:25 Blood Pressure 142/94 H 09/25/23 14:25 Pulse Oximetry 100 09/25/23 14:25 Oxygen Delivery Method Room Air 09/25/23 14:25 <Marlin Gurrola MD - Last Filed: 09/25/23 20:33> Initial Vital Signs Initial Vital Signs: Vital Signs Temperature 98.3 F 09/25/23 14:25 Pulse Rate 71 09/25/23 14:25 Respiratory Rate 16 09/25/23 14:25 Blood Pressure 142/94 H 09/25/23 14:25 Pulse Oximetry 100 09/25/23 14:25 Oxygen Delivery Method Room Air 09/25/23 14:25 Scores <Tammie Rich PA-C - Last Filed: 09/25/23 19:30> GCS Erika coma scale eye opening: Spontaneous Erika coma scale verbal response: Orientated Erika coma scale motor response: Obey commands Erika coma scale total score: 15 NIH Stroke Scale Level of Conciousness: Alert, keenly responsive Ask month/age: Answers both questions correctly. Open/close eyes, close hand: Performs both tasks correctly Best gaze horizontal: Normal Visual hickman: No visual loss Facial palsy: Normal symetrical movement Left arm drift: No drift for full 10 sec Right arm drift: No drift for full 10 sec Left leg drift: No drift for full 5 sec Right leg drift: No drift for full 5 sec Limb ataxia: Absent Sensory on face/arms/legs: Normal, no sensory loss Best language: No aphasia, normal Dysarthria: Mild to mod,some slurring Extinction or inattention: No abnormality Total NIH Stroke scale score: 1 <Marlin Gurrola MD - Last Filed: 09/25/23 20:33> GCS Erika coma scale total score: 15 NIH Stroke Scale Total NIH Stroke scale score: 1 Course <Tammie Rich PA-C - Last Filed: 09/25/23 19:30> Orders Ordered: ED Orders 09/25/23 15:43 CT angio head and neck Stat 09/25/23 15:45 CT Stroke Stat XR chest 1V Stat EKG-12 Lead Stat 09/25/23 15:51 Complete Blood Count AUTO DIFF Stat Comprehensive Metabolic Panel Stat Magnesium Stat PTT Partial Thromboplastin Anders Stat Prothrombin Time INR Stat Troponin & CK Cardiac Panel Stat Urinalysis and Microscopic Stat Urine Drug Screen, Rapid Stat Ondansetron HCl (Ondansetron 4 Mg/2 Ml Inj) 4 mg IV NOW PRN PRN Reason: Nausea And Vomiting Last Admin: 09/25/23 16:41 Dose: 4 mg Documented By: RB Ondansetron HCl (Ondansetron 4 Mg Odt) 4 mg SL NOW PRN PRN Reason: Nausea And Vomiting Discontinued Medications Acetaminophen (Acetaminophen 325 Mg Tablet) 975 mg PO NOW ONE Stop: 09/25/23 17:15 Last Admin: 09/25/23 17:47 Dose: 975 mg Documented By: RB Dexamethasone (Dexamethasone 10 Mg/Ml Vial) 10 mg IV NOW ONE Stop: 09/25/23 17:15 Last Admin: 09/25/23 17:47 Dose: 10 mg Documented By: RB Diphenhydramine HCl (Diphenhydramine 50 Mg/Ml Vial) 25 mg IV NOW ONE Stop: 09/25/23 15:56 Last Admin: 09/25/23 16:41 Dose: 25 mg Documented By: RB Sodium Chloride (Normal Saline 0.9%) 1,000 mls @ 1,000 mls/hr IV BOLUS ONE Stop: 09/25/23 16:54 Last Infusion: 09/25/23 17:56 Dose: Infused Documented By: Admin: 09/25/23 16:42 Dose: 1,000 mls/hr Documented By: RB Valproic Acid 1,000 mg/ (Dextrose) 60 mls @ 60 mls/hr IV NOW ONE Stop: 09/25/23 18:03 Last Admin: 09/25/23 18:37 Dose: Not Given Documented By: RB Valproic Acid 1,000 mg/ Sodium (Chloride) 60 mls @ 60 mls/hr IV NOW ONE Stop: 09/25/23 19:29 Last Infusion: 09/25/23 19:45 Dose: Infused Documented By: Admin: 09/25/23 18:44 Dose: 60 mls/hr Documented By: RB Ketorolac Tromethamine (Ketorolac 30 Mg/Ml Vial) 15 mg IV NOW ONE Stop: 09/25/23 17:38 Last Admin: 09/25/23 17:47 Dose: 15 mg Documented By: RB Metoclopramide HCl (Metoclopramide 10 Mg/2 Ml Inj) 10 mg IV NOW ONE Stop: 09/25/23 15:56 Last Admin: 09/25/23 16:41 Dose: 10 mg Documented By: RB Vital Signs Vital signs: Vital Signs - 8 hr 09/25/23 14:25 09/25/23 16:04 09/25/23 16:39 Temperature 98.3 F 98.1 F Pulse Rate 71 69 67 Respiratory Rate 16 14 16 Blood Pressure 142/94 H 134/71 112/69 Pulse Oximetry 100 99 98 Oxygen Delivery Method Room Air Room Air Room Air 09/25/23 17:18 09/25/23 17:57 09/25/23 18:31 Temperature Pulse Rate 80 58 L 58 L Respiratory Rate 16 15 17 Blood Pressure 129/71 112/66 106/61 Pulse Oximetry 93 100 99 Oxygen Delivery Method Room Air Room Air Room Air <Mralin Gurrola MD - Last Filed: 09/25/23 20:33> Orders Ordered: ED Orders 09/25/23 15:43 CT angio head and neck Stat 09/25/23 15:45 CT Stroke Stat XR chest 1V Stat EKG-12 Lead Stat 09/25/23 15:51 Complete Blood Count AUTO DIFF Stat Comprehensive Metabolic Panel Stat Magnesium Stat PTT Partial Thromboplastin Anders Stat Prothrombin Time INR Stat Troponin & CK Cardiac Panel Stat Urinalysis and Microscopic Stat Urine Drug Screen, Rapid Stat Ondansetron HCl (Ondansetron 4 Mg/2 Ml Inj) 4 mg IV NOW PRN PRN Reason: Nausea And Vomiting Last Admin: 09/25/23 16:41 Dose: 4 mg Documented By: RB Ondansetron HCl (Ondansetron 4 Mg Odt) 4 mg SL NOW PRN PRN Reason: Nausea And Vomiting Discontinued Medications Acetaminophen (Acetaminophen 325 Mg Tablet) 975 mg PO NOW ONE Stop: 09/25/23 17:15 Last Admin: 09/25/23 17:47 Dose: 975 mg Documented By: RB Dexamethasone (Dexamethasone 10 Mg/Ml Vial) 10 mg IV NOW ONE Stop: 09/25/23 17:15 Last Admin: 09/25/23 17:47 Dose: 10 mg Documented By: RB Diphenhydramine HCl (Diphenhydramine 50 Mg/Ml Vial) 25 mg IV NOW ONE Stop: 09/25/23 15:56 Last Admin: 09/25/23 16:41 Dose: 25 mg Documented By: RB Sodium Chloride (Normal Saline 0.9%) 1,000 mls @ 1,000 mls/hr IV BOLUS ONE Stop: 09/25/23 16:54 Last Infusion: 09/25/23 17:56 Dose: Infused Documented By: Admin: 09/25/23 16:42 Dose: 1,000 mls/hr Documented By: RB Valproic Acid 1,000 mg/ (Dextrose) 60 mls @ 60 mls/hr IV NOW ONE Stop: 09/25/23 18:03 Last Admin: 09/25/23 18:37 Dose: Not Given Documented By: RB Valproic Acid 1,000 mg/ Sodium (Chloride) 60 mls @ 60 mls/hr IV NOW ONE Stop: 09/25/23 19:29 Last Infusion: 09/25/23 19:45 Dose: Infused Documented By: Admin: 09/25/23 18:44 Dose: 60 mls/hr Documented By: RB Ketorolac Tromethamine (Ketorolac 30 Mg/Ml Vial) 15 mg IV NOW ONE Stop: 09/25/23 17:38 Last Admin: 09/25/23 17:47 Dose: 15 mg Documented By: RB Metoclopramide HCl (Metoclopramide 10 Mg/2 Ml Inj) 10 mg IV NOW ONE Stop: 09/25/23 15:56 Last Admin: 09/25/23 16:41 Dose: 10 mg Documented By: RB Vital Signs Vital signs: Vital Signs - 8 hr 09/25/23 14:25 09/25/23 16:04 09/25/23 16:39 Temperature 98.3 F 98.1 F Pulse Rate 71 69 67 Respiratory Rate 16 14 16 Blood Pressure 142/94 H 134/71 112/69 Pulse Oximetry 100 99 98 Oxygen Delivery Method Room Air Room Air Room Air 09/25/23 17:18 09/25/23 17:57 09/25/23 18:31 Temperature Pulse Rate 80 58 L 58 L Respiratory Rate 16 15 17 Blood Pressure 129/71 112/66 106/61 Pulse Oximetry 93 100 99 Oxygen Delivery Method Room Air Room Air Room Air MDM - Neuro Symptoms/Deficit <Tammie Rich PA-C - Last Filed: 09/25/23 19:30> Lab Data 09/25/23 15:51 09/25/23 15:51 Labs: Lab Results 09/25/23 09/25/23 Range/Units 15:51 15:51 WBC 9.6 (4.5-11.0) X10^3/uL RBC 4.83 (4.0-5.2) X10^6/uL Hgb 15.1 (12.0-16.0) g/dL Hct 42.7 (36-46) % MCV 88.4 (80-100) fL MCH 31.4 (26-34) PG MCHC 35.5 (30-36) % RDW 13.1 (11.6-14.8) % Plt Count 286 (150-400) X10^3/uL Neut % (Auto) 68.5 (50-75) % Lymph % (Auto) 24.0 L (25-40) % [place] % (Auto) 5.6 (3-14) % Eos % (Auto) 1.3 L (2-4) % Baso % (Auto) 0.6 (0-2) % Neut # (Auto) 6600 (9303-6429) /uL Lymph # (Auto) 2300 (7081-0423) /uL [place] # (Auto) 500 (0-900) /uL Eos # (Auto) 100 (0-450) /uL Baso # (Auto) 100 (0-100) /uL PT 12.1 (9.4-12.5) SECONDS INR 1.1 (0.9-1.3) APTT 39 H (25.1-36.5) SECONDS Sodium 137 (137-145) mmol/L Potassium 4.4 (3.4-5.1) mmol/L Chloride 106 (98-107) mmol/L Carbon Dioxide 25 (22-32) mmol/L BUN 19 H (7-17) mg/dL Creatinine 0.64 (0.52-1.04) mg/dL Estimated GFR > 60 (>60) mL/min BUN/Creatinine Ratio 29.7 H (6-22) Glucose 84 (70-100) mg/dL Calcium 9.6 (8.4-10.2) mg/dL Magnesium 1.8 (1.6-2.3) mg/dL Total Bilirubin 1.3 (0.2-1.3) mg/dL AST 14 (14-36) IU/L ALT 22 (<35) IU/L Alkaline Phosphatase 73 (38-126) U/L Total Creatine Kinase 62 (30-135) U/L Troponin I < 0.012 (0.01-0.034) ng/mL Total Protein 8.1 (6.3-8.2) g/dL Albumin 4.6 (3.5-5.0) g/dL Globulin 3.5 (1.7-4.1) g/dL Albumin/Globulin Ratio 1.3 (1.0-2.8) Urine Color Yellow Urine Appearance Clear Urine pH 7.0 Normal (4.5-8.0) Ur Specific [place] 1.010 (1.000-1.035) Urine Protein Negative (Negative) Urine Glucose (UA) Negative (Negative) g/dL Urine Ketones Negative (NEGATIVE) Urine Occult Blood 3+ H (Negative) Urine Nitrate Negative (Negative) Urine Bilirubin Negative (NEGATIVE) Urine Urobilinogen 0.2 (0.2) E.U./dL Ur Leukocyte Esterase Negative (NEGATIVE) Urine RBC 10-30/hpf H (0-5/HPF) Urine WBC None seen (0-5/HPF) Ur Squamous Epith Cells 0-1 /hpf (0-5/HPF) Ur Renal Epithelial Cell 1-5/hpf H (0-1/HPF) Urine Bacteria None seen (None) Ur Culture Indicated? Cult not indicated Vol Urine Centrifuged 10ml (spun) U Opiates 300ng/mL cut Negative (Negative) Ur Oxycodone Screen Negative (Negative) Urine Methadone Screen Negative (Negative) Ur Barbiturates Screen Negative (Negative) U Tricyclic Antidepress Negative (Negative) Ur Phencyclidine Scrn Negative (Negative) Ur Amphetamines Screen Negative (Negative) U Methamphetamines Scrn Negative (Negative) Ur MDMA Scrn (Ecstasy) Negative (Negative) U Benzodiazepines Scrn Negative (Negative) Urine Cocaine Screen Negative (Negative) U Marijuana (THC) Screen Negative (Negative) Urine Specific [place] Normal (Normal) Ur Creatinine Normal (Normal) Point of Care Testing Glucose POC 74 MDM Narrative Medical decision making narrative: 38-year-old female with past medical history migraines presents to the ED with 3 weeks of headache. Concern for subacute stroke versus migraine versus other. Ordered stroke workup. Will give Tylenol, IV fluids, dexamethasone, Benadryl, Reglan. Will give Toradol if negative CT. EKG is normal sinus rhythm with no acute ST-T changes. No axis deviation. Labs within normal limits. UA shows RBCs but no infection. CT head and CTA head and neck without acute findings. Toradol was also given since the CT was negative. Patient's headache improved to a 4/10 from a 10/10. Patient endorses feeling significantly better. Patient's daughter has somewhat improved but not completely resolved. Consulted with Dr. Ash the hospitalist who suggested 1 g of Depakote for the headache and retest if neuro symptoms subside as well. Dr. Ash agrees to admit patient if neuro symptoms are still persistent after the Depakote. Patient has been started on 1 g of Depakote IV infusion. Discussed patient with Dr. Marlin Gurrola, and care of patient is transferred to Dr. Gamez at this time. <Marlin Gurrola MD - Last Filed: 09/25/23 20:33> Lab Data Labs: Lab Results 09/25/23 09/25/23 Range/Units 15:51 15:51 WBC 9.6 (4.5-11.0) X10^3/uL RBC 4.83 (4.0-5.2) X10^6/uL Hgb 15.1 (12.0-16.0) g/dL Hct 42.7 (36-46) % MCV 88.4 (80-100) fL MCH 31.4 (26-34) PG MCHC 35.5 (30-36) % RDW 13.1 (11.6-14.8) % Plt Count 286 (150-400) X10^3/uL Neut % (Auto) 68.5 (50-75) % Lymph % (Auto) 24.0 L (25-40) % [place] % (Auto) 5.6 (3-14) % Eos % (Auto) 1.3 L (2-4) % Baso % (Auto) 0.6 (0-2) % Neut # (Auto) 6600 (6664-4414) /uL Lymph # (Auto) 2300 (1505-4054) /uL [place] # (Auto) 500 (0-900) /uL Eos # (Auto) 100 (0-450) /uL Baso # (Auto) 100 (0-100) /uL PT 12.1 (9.4-12.5) SECONDS INR 1.1 (0.9-1.3) APTT 39 H (25.1-36.5) SECONDS Sodium 137 (137-145) mmol/L Potassium 4.4 (3.4-5.1) mmol/L Chloride 106 (98-107) mmol/L Carbon Dioxide 25 (22-32) mmol/L BUN 19 H (7-17) mg/dL Creatinine 0.64 (0.52-1.04) mg/dL Estimated GFR > 60 (>60) mL/min BUN/Creatinine Ratio 29.7 H (6-22) Glucose 84 (70-100) mg/dL Calcium 9.6 (8.4-10.2) mg/dL Magnesium 1.8 (1.6-2.3) mg/dL Total Bilirubin 1.3 (0.2-1.3) mg/dL AST 14 (14-36) IU/L ALT 22 (<35) IU/L Alkaline Phosphatase 73 (38-126) U/L Total Creatine Kinase 62 (30-135) U/L Troponin I < 0.012 (0.01-0.034) ng/mL Total Protein 8.1 (6.3-8.2) g/dL Albumin 4.6 (3.5-5.0) g/dL Globulin 3.5 (1.7-4.1) g/dL Albumin/Globulin Ratio 1.3 (1.0-2.8) Urine Color Yellow Urine Appearance Clear Urine pH 7.0 Normal (4.5-8.0) Ur Specific [place] 1.010 (1.000-1.035) Urine Protein Negative (Negative) Urine Glucose (UA) Negative (Negative) g/dL Urine Ketones Negative (NEGATIVE) Urine Occult Blood 3+ H (Negative) Urine Nitrate Negative (Negative) Urine Bilirubin Negative (NEGATIVE) Urine Urobilinogen 0.2 (0.2) E.U./dL Ur Leukocyte Esterase Negative (NEGATIVE) Urine RBC 10-30/hpf H (0-5/HPF) Urine WBC None seen (0-5/HPF) Ur Squamous Epith Cells 0-1 /hpf (0-5/HPF) Ur Renal Epithelial Cell 1-5/hpf H (0-1/HPF) Urine Bacteria None seen (None) Ur Culture Indicated? Cult not indicated Vol Urine Centrifuged 10ml (spun) U Opiates 300ng/mL cut Negative (Negative) Ur Oxycodone Screen Negative (Negative) Urine Methadone Screen Negative (Negative) Ur Barbiturates Screen Negative (Negative) U Tricyclic Antidepress Negative (Negative) Ur Phencyclidine Scrn Negative (Negative) Ur Amphetamines Screen Negative (Negative) U Methamphetamines Scrn Negative (Negative) Ur MDMA Scrn (Ecstasy) Negative (Negative) U Benzodiazepines Scrn Negative (Negative) Urine Cocaine Screen Negative (Negative) U Marijuana (THC) Screen Negative (Negative) Urine Specific [place] Normal (Normal) Ur Creatinine Normal (Normal) Point of Care Testing Glucose POC 74 MDM Narrative Medical decision making narrative: 38-year-old female with past medical history migraines presents to the ED with 3 weeks of headache. Concern for subacute stroke versus migraine versus other. Ordered stroke workup. Will give Tylenol, IV fluids, dexamethasone, Benadryl, Reglan. Will give Toradol if negative CT. EKG is normal sinus rhythm with no acute ST-T changes. No axis deviation. Labs within normal limits. UA shows RBCs but no infection. CT head and CTA head and neck without acute findings. Toradol was also given since the CT was negative. Patient's headache improved to a 4/10 from a 10/10. Patient endorses feeling significantly better. Patient's daughter has somewhat improved but not completely resolved. Consulted with Dr. Ash the hospitalist who suggested 1 g of Depakote for the headache and retest if neuro symptoms subside as well. Dr. Ash agrees to admit patient if neuro symptoms are still persistent after the Depakote. Patient has been started on 1 g of Depakote IV infusion. Discussed patient with Dr. Marlin Gurrola, and care of patient is transferred to Dr. Gamez at this time. 830pm Dr Gurrola care is assumed, patient is independently examined, chart is reviewed, imaging studies reviewed 38-year-old woman with long history of chronic migraine followed by Kali Aguilar MD neurologist, currently on prophylactic medication and hoping to move toward Botox as an outpatient. Workup today has been entirely unremarkable. She had a CT and a CT angiogram that did not show acute findings to suggest stroke. She was given IV Depakote and her headache as well as a stat are have completely resolved. At this point the most likely explanation is complex migraine. She is feeling significantly improved and we will be discharged home. I have sent a message to Dr. Aguilar, her neurologist to let him know that she was in the department, that she responded nicely to Depakote and that she has been trying to reach his office to follow up on possible Botox injections as an outpatient. At this time questions have been answered and patient is safe for discharge Discharge Plan Departure Patient Disposition: Home Clinical Impression: Migraine Qualifiers: Migraine type: chronic migraine (15 or more days per month) with aura Status migrainosus presence: with status migrainosus Intractability: not intractable Q ualified Code(s): G43.E01 - Chronic migraine with aura, not intractable, with status migrainosus Instructions: DI for Migraine Activity Restrictions/Additional Instructions: Thank you for coming in today I think that the symptoms that you are having are related to complex migraine. The CT scan and CT angiogram of your head and neck did not show evidence of stroke or vascular abnormalities. In the emergency department you received Toradol, dexamethasone, oral Tylenol, IV Benadryl, IV metoclopramide a L of fluids and eventually 1 g of Depakote. The 1g of Depakote seemed to be the vaughn to getting rid of your current headache as well as the stuttering symptoms I have messaged Dr. Aguilar to let him know you are in the emergency department and have been trying to reach his office regarding outpatient Botox injections. In the meantime, it is safe for you to go home. Please continue all of your current medications. Please do follow up with Dr. Aguilar as you have been planning. If you find that you are getting worse or develop any new symptoms, please feel free to return to the emergency department for further evaluation. Prescriptions: No Action ondansetron 4 mg tablet,disintegrating 4 mg PO TID-QID PRN (Reason: nausea and vomiting) Qty: 10 0RF Topamax See Rx Instructions .ROUTE .COMPLEX Rx Instructions: as instructed ondansetron 4 mg tablet,disintegrating 4 mg PO Q8H PRN (Reason: nausea and vomiting) Qty: 14 0RF ondansetron 4 mg tablet,disintegrating 4 mg PO Q8H PRN (Reason: nausea and vomiting) Qty: 10 0RF Referrals: Miscellaneous,Doctor, MD [Primary Care Provider] - Stand Alone Forms: Patient Portal/API
[2023-09-25] MEDS: KETOROLAC 30 MG/ML VIAL 15 MG IV (17:47)
[2023-09-25] MEDS: ACETAMINOPHEN 325 MG TABLET 975 MG PO (17:47)
[2023-09-25] MEDS: DEXAMETHASONE 10 MG/ML VIAL IV (17:47)
[2023-09-25] MEDS: VALPROIC ACID 1,000 MG in SODIUM CHLORIDE 0.9% 50 ML 60 MG IV (18:44)
== END 2023-09-25 20:44 | disposition home or self-care (01) ==
PROVIDERS: Student in an Organized Health Care Education/Training Program; Emergency Provider Emergency Medicine
DX: G43.101 Migraine with aura, not intractable, with status migrainosus (principal)
CPT/HCPCS: 36415; 70450; 70496; 70498; 71045; 80053; 80305; 81001; 82550; 82962; 83735; 84484; 85025; 85610; 85730; 93005; 93010; 96365; 96375; 99285; J1100; J1200; J1885; J2405; J2765; Q9967